=== PATIENT | female | born 1965 | race Caucasian/White ===

== ENCOUNTER 2024-11-26 20:33 | Emergency (ER) | payer OTHER ==
--- OUTSIDE RECORDS SUMMARY | 2024-11-26 20:41 | XMS REPORT | Continuity of Care Document ---
Author Name Unknown Address [address] [facility] [place] [address] [facility] Address [address] [facility] [place] [address] Care Team Providers Care Company Accountant Name Role Phone Pawan Vaughan Primary Care Physician [phone] CORINNE TELLO Attending Clinician Donna vailable CORINNE TELLO Attending Clinician Donna vailable Corinne Tello DDS Attending Clinician NAIDA DURAN Attending Clinician Unavailable Eloina Carballo MA Attending Clinician UnavailOra Del Rio DPM Attending Clinician [phone] ORA APARICIO Attending Clinician Reanna lindsay GC_GCBZW_Ronda_Rudi Attending Clinician Harjinder Huffman Attending Clinician Unavailable Pawan Vaughan Attending Clinician [phone] Doctor Unassigned, [place] Attending Clinician Tyree Lay Attending Clinician [phone] Reed Barraza MD Attending Clinician REED BARRAZA Attending Clinician UnavailSpring Balderas MD Attending Clinician SPRING FRANZ Attending Clinician Unavailable TYREE STEPHENS Attending Clinician Unavailable GC_GCBZW_Kadiyala_S Admitting Clinician UnavailHarjinder Johnson Admitting Clinician Unavailable Payers Payer Name Policy Type Policy Number Effective Date Expirati on Date Source [employer] COMM [id number] 2023 00:00:00 [employer] (EPO) [id number] 2016 00:00:00 Problems Condition Name Condition Details Condition Category Status Onset Date Resolution Date Last Treatment Date Treating Clinician Comments Source Chronic idiopathic constipati on Chronic Idiopathic Constipati on Problem Active 2023-02 2- 00:00: 00 [facility] Incomplete emptying of urinary bladder Incomplete Emptying of Urinary Bladder Problem Active 2023-02 2-20 00:00: 00 [facility] Diverticul osis of colon Diverticul osis of Colon Problem Active 4-02 00:00: 00 [facility] Pain in pelvis Pain in Pelvis Problem Active 1-31 00:00: 00 [facility] Essential hypertensi on Essential Hypertensi on Problem Active 2022-02 2-13 00:00: 00 [facility] Peripheral vascular disease Peripheral Vascular Disease Problem Active 2022-02 2-13 00:00: 00 [facility] Tobacco dependence syndrome Tobacco Dependence Syndrome Problem Active 8-08 00:00: 00 [facility] Uterovagin al prolapse Uterovagin al Prolapse Problem Active 8-08 00:00: 00 [facility] Atrophic vaginitis Atrophic Vaginitis Problem Active 8-08 00:00: 00 [facility] Overactive urinary bladder Overactive Urinary Bladder Problem Active 8-08 00:00: 00 [facility] Peripheral arterial disease Peripheral Arterial Disease Problem Active 8-08 00:00: 00 [facility] Sensation as if urinary bladder still full Sensation as If Urinary Bladder Still Full Problem Active 2-03 00:00: 00 [facility] Incomplete uterovagin al prolapse Incomplete Uterovagin al Prolapse Problem Active 10-18 00:00: 00 [facility] Medical Microscopi c hematuria Microscopi c Hematuria Problem Active 03-09 00:00: 00 [facility] Medical Tobacco dependence caused by cigarettes Tobacco Dependence Caused by Cigarettes Problem Active 2014-02 00:00: 00 [facility] Medical Lateral cystocele Lateral Cystocele Problem Active 2014-02 00:00: 00 [facility] Medical Gynecologi michael examinatio n abnormal Gynecologi michael Examinatio n Abnormal Problem Active 2014-02 00:00: 00 [facility] Medical No known active problems No known active problems Disease [facility] [id number] Vaginal prolapse Problem Active [facility] Allergies, Adverse Reactions, Alerts Allergy Name Allergy Type Status Severity Reaction(s) Onset Date Inactive Date Treating Clinician Comments Source No Known Allergie s DA Active U 2022-02 00:00: 00 [facility] NO KNOWN ALLERGIE S SYSTEMIC Active [facility] NO KNOWN ALLERGIE S SYSTEMIC Active [facility] NO KNOWN ALLERGIE S SYSTEMIC Active M[facility]OUT NO KNOWN ALLERGIE S SYSTEMIC Active [facility] ALLERGIE S NOT ON FILE SYSTEMIC Active [facility] NO KNOWN ALLERGIE S SYSTEMIC Active [facility] NO KNOWN ALLERGIE S SYSTEMIC Active [facility] NO KNOWN ALLERGIE S SYSTEMIC Active [facility] NO KNOWN ALLERGIE S SYSTEMIC Active [facility] NO KNOWN ALLERGIE S Drug Class Active [facility] Social History Social Habit Start Date Stop Date Quantity Comments Source History of tobacco use Cigarette Smoker [facility] ASSERTION Possible [facility] Sex Assigned At [facility] Gender identity [place] steffany [facility] Tobacco Comment 2024-11-02 00:00:00 2024-11-02 00:00:00 Quit smoking 2 years ago [facility] Tobacco use and exposure 2024-11-02 00:00:00 2024-11-02 00:00:00 User of smokeless tobacco [facility] History of Social function 2020-09-12 00:00:00 2020-09-12 00:00:00 [facility] Smoking Status Start Date Stop Date Source Tobacco smoking consumption unknown [facility] c Ex-smoker 2024-11-02 00:00:00 2024-11-02 00:00:00 [facility] Current Smoker 2021-09-25 00:00:00 [facility] Medications Ordered Medication Name Filled Medication Name Start Date Stop Date Current Medication? Ordering Clinician Indication Dosage Frequency Signature (SIG) Comments Components Source lisinopriL 10 mg tablet 11-02 14:29: 10 Yes 1 tablet Orally Once a day [facility] ePHEDrine HCL 12.5 mg Tab 11-02 14:29: 10 Yes as directed Orally [facility] LIPITOR 10 mg tablet 11-02 14:29: 10 Yes 1 tablet Orally Once a day [facility] lidocaine 2% viscous 2 % solution 11-02 00:00: 00 Yes [id number] 15mL Take 15 mL by mouth as needed for Oral mucosal pain. [facility] chlorhexidi ne 0.12 % mouthwash 11-02 00:00: 00 11-19 04:59 :00 Yes [id number] 15mL Swish and spit out 15 mL in the morning and 15 mL in the evening. Do all this for 16 days. [facility] alendronate 70 mg tablet 10-29 00:00: 00 Yes [facility] foLIC acid 1 mg tablet 16 00:00: 00 Yes [facility] TAKE ONE TABLET BY MOUTH ONCE NIGHTLY 2022-02 00:00: 00 Yes 40 Tomás Ferrari TAKE 1 TABLET BY MOUTH DAILY 09-04 00:00: 00 01-14 00:00 :00 No 40 Tomásedwige Ferrari TAKE 1 TABLET BY MOUTH DAILY 6 00:00: 00 01-14 00:00 :00 No 40 Tomás Ferrari TAKE 1 TABLET BY MOUTH NIGHTLY -20 00:00: 00 01-14 00:00 :00 No 40 Tomás Ferrari TAKE 7.5 ML PO EVERY 6 TO 8 HOURS NEEDED FOR COUGH -19 00:00: 00 01-14 00:00 :00 No [id number] Tomás Ferrari TAKE 1 TABLET TWICE DAILY WITH FOOD. -19 00:00: 00 01-14 00:00 :00 No [id number] Tomás Ferrari TAKE ONE TABLET BY MOUTH DAILY 3-10 00:00: 00 01-14 00:00 :00 No 40 Tomás Ferrari TAKE ONE TABLET BY MOUTH DAILY 2- 00:00: 00 01-14 00:00 :00 No 40 Tomás Ferrari Dose Unknown 2021-02 00:00: 00 01-14 00:00 :00 No Tomás Ferrari TAKE 1 TABLET AT BEDTIME. 2021-02- 00:00: 00 01-14 00:00 :00 No Tomás Ferrari Dose Unknown 2021-02 00:00: 00 01-14 00:00 :00 No Tomás Ferrari Dose Unknown - 00:00: 00 Yes Tomás Ferrari atorvastati n 20 mg tablet - 00:00: 00 Yes 1mg Tomás Ferrari Dose Unknown - 00:00: 00 Yes Tomás Ferrari Dose Unknown - 00:00: 00 Yes Tomás Ferrari Dose Unknown - 00:00: 00 Yes Tomás Ferrari Dose Unknown - 00:00: 00 Yes Tomás Ferrari Dose Unknown 2020-02 2- 00:00: 00 Yes Tomás Ferrari atorvastati n 20 mg tablet 2020-02 2- 00:00: 00 Yes 1mg Tomás Ferrari meloxicam 7.5 mg tablet 8- 00:00: 00 Yes [id number] 7.5mg Take 1 tablet by mouth daily. [facility] methylPREDN ISolone (MEDROL, FELY,) 4 mg tablets - 00:00: 00 Yes [id number] 84mg Take 21 tablets by mouth SEE-INSTRU CTIONS. follow package directions [facility] Dose Unknown - 00:00: 00 Yes Tomás Ferrari cyclobenzap rine 5 mg tablet 7-14 00:00: 00 Yes 12mg Tomás Ferrari atorvastati n 20 mg tablet -02 00:00: 00 Yes 1mg Tomás Ferrari lisinopril 20 mg tablet 6-30 00:00: 00 Yes 1mg Tomás Ferrari lisinopril 20 mg tablet 15 00:00: 00 Yes 1mg Tomás Ferrari triamcinolo ne acetonide 0.1 % topical ointment 06-16 00:00: 00 Yes 1% Tomás Ferrari lisinopril 20 mg tablet 06-16 00:00: 00 Yes 1mg Tomás Ferrari sulfamethox azole 800 mg-trimetho prim 160 mg tablet 05-18 00:00: 00 Yes 1mg Tomás Ferrari Primatene 12.5 MG Primatene 12.5 MG No Primatene 12.5 MG atorvastati n atorvastati n No atorvastat in [facility] Medical Baby Aspirin 81 mg chewable tablet Chew 1 tablet every day by oral route. Baby Aspirin 81 mg chewable tablet Chew 1 tablet every day by oral route. No 1 Q1D Baby Aspirin 81 mg chewable tablet Chew 1 tablet every day by oral route. [facility] Medical clopidogrel clopidogrel No cl opidogre l [facility] estradiol 0.01% (0.1 mg/gram) vaginal cream Insert 0.5 g every day by vaginal route for 90 days. estradiol 0.01% (0.1 mg/gram) vaginal cream Insert 0.5 g every day by vaginal route for 90 days. No .5g Q1D estradiol 0.01% (0.1 mg/gram) vaginal cream Insert 0.5 g every day by vaginal route for 90 days. [facility] FeroSul FeroSul No FeroSul [facility] gabapentin gabapentin No gabapentin [facility] lisinopril lisinopril No lisinopril [facility] Vital Signs Vital Name Observation Time Observation Value Comments S ource Diastolic blood pressure 2024-11-02 19:22:00 39 mm[Hg] [facility] Heart rate 2024-11-02 19:22:00 71 /min [facility] Body height 2024-11-02 19:22:00 149.9 cm [facility] Body weight 2024-11-02 19:22:00 45.995 kg [facility] BMI 2024-11-02 19:22:00 20.48 kg/m2 [facility] Oxygen saturation in Arterial blood by Pulse oximetry 2024-11-02 19:22:00 100 /min [facility] Systolic blood pressure 2024-11-02 19:22:00 105 mm[Hg] [facility] BMI (Body Mass Index) 2024-02-05 00:00:00 19.6 kg/m2 [facility] BP Systolic 2024-02-05 00:00:00 124 mm[Hg] [facility] BP Diastolic 2024-02-05 00:00:00 52 mm[Hg] [facility] Height 2024-02-05 00:00:00 59 [in_i] [facility] Body Weight 2024-02-05 00:00:00 97 [lb_av] [facility] BP Systolic 2023-05-19 00:00:00 117 mm[Hg] [facility] Body Weight 2023-05-19 00:00:00 100 [lb_av] [facility] BMI (Body Mass Index) 2023-05-19 00:00:00 20.2 kg/m2 [facility] Height 2023-05-19 00:00:00 59 [in_i] [facility] BP Diastolic 2023-05-19 00:00:00 60 mm[Hg] [facility] height 2021-09-25 14:30:00 59 [in_i] [facility] weight 2021-09-25 14:30:00 89 [lb_av] [facility] temperature 2021-09-25 14:30:00 97.6 [degF] Com mon [facility] bmi 2021-09-25 14:30:00 17.97 kg/m2 [facility] oximetry 2021-09-25 14:30:00 98 % Commo n [facility] respiratory rate 2021-09-25 14:30:00 16 /min [facility] blood pressure systolic 2021-09-25 14:30:00 146 mm[Hg] [facility] blood pressure diastolic 2021-09-25 14:30:00 68 mm[Hg] [facility] Systolic blood pressure 2020-11-08 16:13:00 145 mm[Hg] [facility] Diastolic blood pressure 2020-11-08 16:13:00 72 mm[Hg] [facility] Heart rate 2020-11-08 16:13:00 75 /min [facility] Body weight 2020-11-08 16:13:00 37.603 kg [facility] BMI 2020-11-08 16:13:00 17.94 kg/m2 [facility] Oxygen saturation in Arterial blood by Pulse oximetry 2020-11-08 16:13:00 98 /min [facility] BP Systolic 2024-04-21 08:43:00 118 mm[Hg] Step hen [facility] BP Diastolic 2024-04-21 08:43:00 65 mm[Hg] Darrius phen F [facility] Weight Measured 2024-04-21 08:43:00 93.00 pounds Tomás F [facility] Height Measured 2024-04-21 08:43:00 59.00 inches Tomás F [facility] Body Temperature 2024-04-21 08:43:00 97.90 degrees Tomás F [facility] Heart Rate 2024-04-21 08:43:00 85.00 /min Lacey en F [facility] Respiratory Rate 2024-04-21 08:43:00 18.00 /min Tomás F Vega BP Systolic 2022-09-04 13:34:00 136 mm[Hg] Step hen [facility] BP Diastolic 2022-09-04 13:34:00 71 mm[Hg] Darrius phen [facility] Weight Measured 2022-09-04 13:34:00 90.80 pounds Tomás F Vega Height Measured 2022-09-04 13:34:00 59.00 inches Tomás F Vega Body Temperature 2022-09-04 13:34:00 98.50 degrees Tomás F Vega Heart Rate 2022-09-04 13:34:00 73.00 /min Lacey en F [facility] Respiratory Rate 2022-09-04 13:34:00 17.00 /min Tomás F Vega BP Systolic 2022-06-05 08:46:00 144 mm[Hg] Step hen F [facility] BP Diastolic 2022-06-05 08:46:00 74 mm[Hg] Darrius phen F [facility] Weight Measured 2022-06-05 08:46:00 88.80 pounds Tomás F Vega Height Measured 2022-06-05 08:46:00 59.00 inches Tomás F Vega Body Temperature 2022-06-05 08:46:00 98.20 degrees Tomás F Vega Heart Rate 2022-06-05 08:46:00 85.00 /min Lacey en F Evga Respiratory Rate 2022-06-05 08:46:00 18.00 /min Tomás F Vega BP Systolic 2022-04-09 15:05:00 121 mm[Hg] Step hen F [facility]ega BP Diastolic 2022-04-09 15:05:00 67 mm[Hg] Darrius phen F [facility] Weight Measured 2022-04-09 15:05:00 87.60 pounds Tomás F Vega Height Measured 2022-04-09 15:05:00 59.00 inches Tomás F Vega Body Temperature 2022-04-09 15:05:00 98.30 degrees Tomás F Vega Heart Rate 2022-04-09 15:05:00 77.00 /min Lacey en F [facility]ega Respiratory Rate 2022-04-09 15:05:00 17.00 /min Tomás F Vega BP Systolic 2022-02-26 10:00:00 123 mm[Hg] Step hen F [facility]ega BP Diastolic 2022-02-26 10:00:00 69 mm[Hg] Darrius phen F [facility] Weight Measured 2022-02-26 10:00:00 87.40 pounds Tomás F Vega Height Measured 2022-02-26 10:00:00 59.00 inches Tomás F Vega Body Temperature 2022-02-26 10:00:00 97.60 degrees Tomás F Vega Heart Rate 2022-02-26 10:00:00 78.00 /min Lacey en F [facility]ega Respiratory Rate 2022-02-26 10:00:00 18.00 /min Tomás F Vega BP Systolic 2022-01-28 10:47:00 135 mm[Hg] Step hen F [facility]ega BP Diastolic 2022-01-28 10:47:00 70 mm[Hg] Darrius phen F [facility]ega Weight Measured 2022-01-28 10:47:00 87.20 pounds Tomás F Vega Height Measured 2022-01-28 10:47:00 59.00 inches Tomás F Vega Body Temperature 2022-01-28 10:47:00 97.70 degrees Tomás F Vega Heart Rate 2022-01-28 10:47:00 80.00 /min Lacey en F Vega Respiratory Rate 2022-01-28 10:47:00 18.00 /min Tomás F Vega BP Systolic 2021-12-31 11:09:00 125 mm[Hg] Step hen F [facility]ega BP Diastolic 2021-12-31 11:09:00 74 mm[Hg] Darrius phen F [facility]ega Weight Measured 2021-12-31 11:09:00 86.60 pounds Tomás F Vega Height Measured 2021-12-31 11:09:00 59.00 inches Tomás F Vega Body Temperature 2021-12-31 11:09:00 98.30 degrees Tomás F Vega Heart Rate 2021-12-31 11:09:00 81.00 /min Lacey en F Vega Respiratory Rate 2021-12-31 11:09:00 18.00 /min Tomás F Vega BP Systolic 2021-11-28 10:31:00 144 mm[Hg] Step hen F [facility]ega BP Diastolic 2021-11-28 10:31:00 73 mm[Hg] Darrius phen F [facility]ega Weight Measured 2021-11-28 10:31:00 89.00 pounds Tomás F Vega Height Measured 2021-11-28 10:31:00 59.00 inches Tomás F Vega Body Temperature 2021-11-28 10:31:00 98.20 degrees Tomás F Vega Heart Rate 2021-11-28 10:31:00 96.00 /min Lacey en F Vega Respiratory Rate 2021-11-28 10:31:00 18.00 /min Tomás F Vega BP Systolic 2021-11-14 15:15:00 184 mm[Hg] Step hen F Vega BP Diastolic 2021-11-14 15:15:00 76 mm[Hg] Darrius phen F [facility]ega Weight Measured 2021-11-14 15:15:00 90.40 pounds Tomás Ferrari Height Measured 2021-11-14 15:15:00 59.00 inches Tomás F Vega Body Temperature 2021-11-14 15:15:00 98.00 degrees Tomás F Vega Heart Rate 2021-11-14 15:15:00 82.00 /min Alcey en F Vega Respiratory Rate 2021-11-14 15:15:00 18.00 /min Tomás F Vega BP Systolic 2021-03-06 09:29:00 165 mm[Hg] Step hen F Vega BP Diastolic 2021-03-06 09:29:00 82 mm[Hg] Darrius phen F Vega Weight Measured 2021-03-06 09:29:00 82.20 pounds Tomás F Vega Height Measured 2021-03-06 09:29:00 59.45 inches Tomás F Vega Body Temperature 2021-03-06 09:29:00 98.10 degrees Tomás F Vega Heart Rate 2021-03-06 09:29:00 96.00 /min Lacey en F Vega Respiratory Rate 2021-03-06 09:29:00 16.00 /min Tomás F [facility] Procedures Procedure Date / Time Performed Performing Clinician Source SCREENING DIGITAL BREAST TOMOSYNTHESIS BI 2024-02-05 00:00:00 [facility] Medical Repair of Vagina 2023-02-02 00:00:00 [facility] [id number] 2023-02-02 00:00:00 [facility] [id number] 2023-02-02 00:00:00 [facility] [id number] 2023-02-02 00:00:00 [facility] [id number] 2023-02-02 00:00:00 [facility] [id number] 2023-02-02 00:00:00 [facility] Vascular Surgery 2023-01-26 00:00:00 [facility] Angiography of Peripheral Artery Graft 2022-07-17 00:00:00 [facility] REFERRAL- REQUEST/RESPONSE 2022-04-29 05:01:00 Doctor Unassigned, [place] [facility] REFERRAL- REQUEST/RESPONSE 2021-05-01 05:01:00 Doctor Unassigned, [place] [facility] REFERRAL- REQUEST/RESPONSE 2021-01-08 06:01:00 Doctor Unassigned, [place] [facility] REFERRAL- REQUEST/RESPONSE 2020-12-12 05:01:00 Doctor Unassigned, [place] [facility] AUTHORIZATION FOR RELEASE OF PHI 2020-11-08 05:01:00 Doctor Unassigned, [place] [facility] Tubal Ligation [facility] Encounters Start Date/Time End Date/Time Encounter Type Admission Type Attending [facility] Care Facility Care Department Encounter ID Source 2021-09-25 14:28:04 Outpatient [facility] [id number] [facility] 2024-11-02 14:00:00 2024-11-02 15:25:36 Office Visit Corinne Thomas [facility] [id number] [id number] [id number] [id number] [facility] 2024-09-21 00:00:00 2024-09-21 00:00:00 [facility] [id number] [facility] 2024-04-21 08:35:33 2024-04-21 08:35:33 Outpatient SFA SFA [id number] Tomás Ferrari 2024-04-21 00:00:00 2024-04-21 00:00:00 Outpatient Visit SFA [id number] Tomás Ferrari 2024-02-05 00:00:00 2024-02-05 00:00:00 Latanya Bond MD: [address] [place], [facility] [address], [place] [address] , Ph. [facility] - GC_GCBZW_Jihan [facility]* [id number] [facility] 2023-10-14 00:00:00 2023-11-14 23:52:24 Telephone Haris, Eloina Carballo, Eloina [facility] [address] [id number] [id number] [id number] Jerica samayoa [facility] 2023-11-05 10:20:00 2023-11-05 10:57:08 Office Visit Ora Aparicio [facility] [id number] 350.1.13.70 8.2.7.2.686 [id number] Jerica samayoa [facility] 2023-11-05 10:05:35 2023-11-05 10:57:08 [facility] [id number] 2023-10-08 10:20:00 2023-10-08 10:58:29 Office Visit Markus Ora ThomasErick [facility] [id number] 350.1.13.70 8.2.7.2.686 [id number] [facility] 2023-10-08 10:16:46 2023-10-08 10:58:29 [facility] [id number] 2023-10-01 10:40:00 2023-10-01 11:34:53 Office Visit Markus Ora ThomasErick [facility] [id number] 350.1.13.70 8.2.7.2.686 [id number] [facility] 2023-10-01 10:31:38 2023-10-01 11:34:53 Outpatient Elective [facility] [id number] [facility] 2023-09-17 12:20:00 2023-09-17 12:43:54 Office Visit Ora Aparicio [facility] [id number] 350.1.13.70 8.2.7.2.686 [id number] [facility] 2023-09-17 12:14:21 2023-09-17 12:43:54 Outpatient Elective ORA APARICIO EOUT EOUT [id number] EOUT 2023-09-10 10:40:00 2023-09-10 11:25:20 Consult Ora Aparicio [facility] [id number] 350.1.13.70 8.2.7.2.686 [id number] [facility] 2023-09-10 10:34:02 2023-09-10 11:25:20 Outpatient Elective ORA APARICIO EOUT EOUT [id number] EOUT 2023-09-08 00:00:00 2023-09-08 00:00:00 (TEL) STLMLC STLMLC [id number] [facility] 2023-05-19 00:00:00 2023-05-19 00:00:00 Latanya Bond MD: [address] [place] [address] S, [address], [place] [address] , Ph. [facility] - GC_GCBZW_[facility]* [id number] [facility] 2023-02-02 10:24:00 2023-02-03 17:18:00 Inpatient Harjinder Angel [facility] [id number] [facility] 2022-09-04 13:29:20 2022-09-04 13:29:20 Outpatient SFA SFA [id number] Tomás Ferrari 2022-06-05 08:39:47 2022-06-05 08:39:47 Outpatient SFA SFA [id number] Tomás Ferrari 2022-05-08 00:00:00 2022-05-08 00:00:00 Letter (Out) Pawan Vaughan [facility] [id number] 350.1.13.10 4.2.7.2.686 [id number] [facility] 2022-05-04 00:00:00 2022-05-04 00:00:00 Patient Secure Msg Doctor Unassigned, [place] [facility] [id number] 350.1.13.10 4.2.7.2.686 [id number] [facility] 2022-04-29 00:00:00 2022-04-29 00:00:00 Orders Only Doctor Unassigned, [place] [facility] [id number] 350.1.13.10 4.2.7.2.686 [id number] [facility] 2022-04-09 14:55:26 2022-04-09 14:55:26 Outpatient SFA SFA [id number] Tomás Ferrari 2022-02-26 09:53:30 2022-02-26 09:53:30 Outpatient SFA SFA [id number] Tomás Ferrari 2022-01-28 10:36:24 2022-01-28 10:36:24 Outpatient SFA SFA [id number] Tomás Ferrari 2021-12-31 11:46:14 2021-12-31 11:46:14 Outpatient SFA SFA [id number] Tomás Ferrari 2021-11-28 10:24:21 2021-11-28 10:24:21 Outpatient SFA SFA [id number] Tomás Ferrari 2021-09-25 00:00:00 2021-09-25 00:00:00 OFFICE VISIT NEW PT LEVEL 2 STLMLC STLMLC [id number] [facility] 2021-05-01 00:00:00 2021-05-01 00:00:00 Orders Only Doctor Unassigned, [place] [facility] 1.2840.114 350.1.13.10 4.2.7.2.686 [id number] [facility] 2021-01-08 00:00:00 2021-01-08 00:00:00 Orders Only Doctor Unassigned, [place] [facility] [id number] 350.1.13.10 4.2.7.2.686 [id number] [facility] 2020-12-12 00:00:00 2020-12-12 00:00:00 Orders Only Doctor Unassigned, [place] [facility] [id number] 350.1.13.10 4.2.7.2.686 [id number] [facility] 2020-11-14 00:00:00 2020-11-14 00:00:00 Telephone Tyree Stephens [facility] 1.284.114 350.1.13.10 4.2.7.2.686 [id number] [facility] 2020-11-08 10:54:06 2020-11-08 11:09:06 Office Visit Tyree Stephens Craig L [facility] 1.2840.114 350.1.13.10 4.2.7.2.686 [id number] [facility] 2020-11-08 10:45:00 2020-11-08 10:45:00 Outpatient R REED BARRAZA [facility] [id number] [facility] 2020-11-08 00:00:00 2020-11-08 00:00:00 Letter (Out) Doctor Unassigned, [place] [facility] 1.2840.114 350.1.13.10 4.2.7.2.686 [id number] [facility] 2020-11-08 00:00:00 2020-11-08 00:00:00 Letter (Out) Doctor Unassigned, [facility] [id number] 350.1.13.10 4.2.7.2.686 [id number] [facility] 2020-11-08 00:00:00 2020-11-08 00:00:00 Orders Only Doctor Unassigned, [facility] 1.2.840.114 350.1.13.10 4.2.7.2.686 [id number] [facility] 2020-10-18 12:53:40 2020-10-18 23:59:00 Hospital Encounter [facility] [address] [facility] Office Building 1.2840.114 350.1.13.10 4.2.7.2.686 [id number] [facility] 2020-10-18 13:00:00 2020-10-18 13:00:00 Outpatient R [facility] [id number] [facility] 2020-10-02 00:00:00 2020-10-02 00:00:[address] [facility] [id number] 350.1.13.10 4.2.7.2.686 [id number] [facility] 2020-09-12 14:12:58 2020-09-12 14:52:36 Office Visit Reed Barraza Brett [facility] [id number] 350.1.13.10 4.2.7.2.686 [id number] [facility] 2020-09-12 14:30:00 2020-09-12 14:30:00 Outpatient TYREE GOODMAN [facility] [id number] [facility] Results Test Description Test Time Test Comments Results Result Co mments Source [facility] METABOLIC [id number] 04:40:00* Test Item Value Reference Range Interpretation Comme nts SODIUM (test code = NA) 136 mmol/L 134-147 N POTASSIUM (test code = K) 4.6 mmol/L 3.4-5.0 N CHLORIDE (test code = CL) 103 mmol/L 100-108 N CARBON DIOXIDE (test code = CO2) 26 mmol/L 21-32 N ANION GAP (test code = GAP) 7.0 GAP calc 4.0-15.0 N GLUCOSE (test code = GLU) 130 MG/DL 70-110 H BLOOD UREA NITROGEN (test code = BUN) 16 MG/DL 7-18 N GLOMERULAR FILTRATION RATE (test code = GFR) >=60 max estimate estGFR >60 The Glomerular Filtration Rate is a calculated parameterbased on serum Creatinine, patient age and sex. GFR valuesless than 60 mL/min/1.73 square meters are indicative ofChronic Kidney Disease. Values less than 15 mL/min/1.73square meters indicate Kidney failure. The calculation forGFR is based on the CKD-EPI (2020) calculation. This formulais race indifferent and is the recommended formula for GFRby the National Kidney Foundation for Adults.The GFR will not calculate if the sex is unknown or if thepatient's age is <18 years. CREATININE (test code = CREAT) 1.0 MG/DL 0.6-1.0 N CALCIUM (test code = CA) 9.0 MG/DL 8.5-10.1 N CBC W/AUTO [id number] 04:14:00* Test Item Value Reference Range Interpretation Comme nts WHITE BLOOD CELL (test code = WBC) 11.9 K/mm3 3.5-11.0 H RED BLOOD CELL (test code = RBC) 3.05 M/mm3 4.70-6.10 L HEMOGLOBIN (test code = HGB) 9.1 G/DL 10.4-14.9 L HEMATOCRIT (test code = HCT) 28.0 % 31.5-44.1 L MEAN CELL VOLUME (test code = MCV) 91.8 Fl 84.5-98.6 N MEAN CELL HGB (test code = MCH) 29.8 pg 27.0-34.2 N MEAN CELL HGB CONCETRATION (test code = MCHC) 32.5 G/DL 31.5-34.0 N RED CELL DISTRIBUTION WIDTH (test code = RDW) 14.0 SD 11.5-14.5 N PLATELET COUNT (test code = PLT) 200 K/mm3 150-450 N MEAN PLATELET VOLUME (test c ode = MPV) 8.50 fL 7.0-10.5 N NEUTROPHIL % (test code = NT%) 84.3 % 40-76 H IMMATURE GRANULOCYTE % (test code = IG%) 0.3 % 0.0-5.0 N LYMPHOCYTE % (test code = LY%) 9.9 % 20.5-51.1 L MONOCYTE % (test code = MO%) 5.5 % 1.7-9.3 N EOSINOPHIL % (test code = EO%) 0.0 % 0.0-6.0 N BASOPHIL % (test code = BA%) 0.0 % 0.0-2.0 N NUCLEATED RBC % (test code = NRBC%) 0.0 /100WBC% 0.0-1.0 N NEUTROPHIL # (test code = NT#) 10.1 K/mm3 1.8-7.6 H IMMATURE GRANULOCYTE # (test code = IG#) 0.03 x10 3/uL 0.00-0.03 N LYMPHOCYTE # (test code = LY#) 1.2 K/mm3 0.6-3.2 N MONOCYTE # (test code = MO#) 0.7 K/mm3 0.3-1.1 N EOSINOPHIL # (test code = EO#) 0.0 K/mm3 0.0-0.4 N BASOPHIL # (test code = BA#) 0.0 K/mm3 0.0-0.1 N NUCLEATED RBC # (test code = NRBC#) 0.0 K/mm3 0.0-0.1 N - XR CHEST 1 [id number] 10:53:00 [facility] : 1965 Sex: F Name: DULCE MEZAland : 1965 Age/S: 57 / F [id number] Unit #: [id number] Loc: [place] [address] Phys: Latanya Bond MD Acct: [id number] Dis Date: Status: PRE SDC PHONE #: [phone] Exam Date: 01/29/2023 1041 FAX #: Reason: PRESURGERY EXAMS: CPT: [id number] XR CHEST 1 V 45503 Fluoro Time: DAP (Gy m2): Air Kerma (mGy): EXAMINATION: - XR CHEST 1 V HISTORY: Preop COMPARISON: None. LOCATION CODE: C3 FINDINGS: Single frontal view of the chest is submitted for evaluation. The lungs are clear. The cardiac silhouette, mediastinum and pulmonary vasculature are unremarkable. The regional osseous structures are intact IMPRESSION: No acute radiographic abnormality at 1053 Reported and signed by: Dianne Ruiz M.D. CC: Latanya Bond MD PAGE 1 Signed Report Name: DULCE MEZA [place] : 1965 Age/S: 57 / F [id number] [facility] Unit #: [id number] Loc: [place] [address] Phys: Latanya Bond MD Acct: [id number] Dis Date: Status: PRE SDC PHONE #: [phone] Exam Date: 01/29/2023 1041 FAX #: Reason: PRESURGERY EXAMS: CPT: [id number] XR CHEST 1 V 11335 Fluoro Time: DAP (Gym2): Air Kerma (mGy): (Continued) Technologist: CELY ELLIS Trnscb Date/Time: 01/29/2023 (1053) [id number] Orig Print D/T: S: 01/29/2023 (1057) PAGE 2 Signed ReportBASIC METABOLIC [id number] 10:43:00 * Test Item Value Reference Range Interpretation Comme nts SODIUM (test code = NA) 142 mmol/L 134-147 N POTASSIUM (test code = K) 4.0 mmol/L 3.4-5.0 N CHLORIDE (test code = CL) 109 mmol/L 100-108 H CARBON DIOXIDE (test code = CO2) 28 mmol/L 21-32 N ANION GAP (test code = GAP) 5.0 GAP calc 4.0-15.0 N GLUCOSE (test code = GLU) 109 MG/DL 70-110 N BLOOD UREA NITROGEN (test code = BUN) 8 MG/DL 7-18 N GLOMERULAR FILTRATION RATE (test code = GFR) 52 estGFR >60 L The Glomerular Filtration Rate is a calculated parameterbased on serum Creatinine, patient age and sex. GFR valuesless than 60 mL/min/1.73 square meters are indicative ofChronic Kidney Disease. Values less than 15 mL/min/1.73square meters indicate Kidney failure. The calculation forGFR is based on the CKD-EPI (2020) calculation. This formulais race indifferent and is the recommended formula for GFRby the National Kidney Foundation for Adults.The GFR will not calculate if the sex is unknown or if thepatient's age is <18 years. CREATININE (test code = CREAT) 1.2 MG/DL 0.6-1.0 H CALCIUM (test code = CA) 9.8 MG/DL 8.5-10.1 N PROTHROMBIN [id number] 10:38:00* Test Item Value Reference Range Interpretation Comme nts PT PATIENT (test code = PTP) 11.1 SECONDS 9.3-12.9 N INTERNATIONAL NORMAL RATIO (test code = INR) 1.00 INR Unit 0.8-1.2 N TARGET INR BY INDICATION Indication INR1. Prophylaxis of venous thrombosis 2.0 - 3.0 (orthopedic surgery), Prophylaxis of venous thrombosis (other than high-risk surgery), Treatment of Deep Vein Thrombosis/Pulmonary Embolism, Prevention of systemic embolism - Tissue heart valves, Acute Myocardial Infarction (to prevent systemic embolism), Valvular heart disease, Acute Myocardial Infarction (to prevent systemic embolism), Valvular heart disease, Atrial Fibrillation, Bileaflet mechanical valve in aortic position.2. Mechanical prosthetic valves (high risk), 2.5 - 3.5 Presence of Lupus Anticoagulant or Antiphospholipid Antibodies, Prevention of systemic embolism - Acute Myocardial Infarction (to prevent recurrent infarct). Comment: PRESURGERYTHROMBOPLASTIN TIME [id number] 10:38:00* Test Item Value Reference Range Interpretation Comme nts THROMBOPLASTIN TIME PARTIAL (test code = PTT) 32.7 SECONDS 26-35 N Comment: PRESURGERYCBC W/AUTO [id number] 10:28:00* Test Item Value Reference Range Interpretation Comme nts WHITE BLOOD CELL (test code = WBC) 7.0 K/mm3 3.5-11.0 N RED BLOOD CELL (test code = RBC) 3.50 M/mm3 4.70-6.10 L HEMOGLOBIN (test code = HGB) 10.3 G/DL 10.4-14.9 L HEMATOCRIT (test code = HCT) 32.8 % 31.5-44.1 N MEAN CELL VOLUME (test code = MCV) 93.7 Fl 84.5-98.6 N MEAN CELL HGB (test code = MCH) 29.4 pg 27.0-34.2 N MEAN CELL HGB CONCETRATION (test code = MCHC) 31.4 G/DL 31.5-34.0 L RED CELL DISTRIBUTION WIDTH (test code = RDW) 14.0 SD 11.5-14.5 N PLATELET COUNT (test code = PLT) 169 K/mm3 150-450 N MEAN PLATELET VOLUME (test c ode = MPV) 8.60 fL 7.0-10.5 N NEUTROPHIL % (test code = NT%) 53.4 % 40-76 N IMMATURE GRANULOCYTE % (test code = IG%) 0.1 % 0.0-5.0 N LYMPHOCYTE % (test code = LY%) 35.7 % 20.5-51.1 N MONOCYTE % (test code = MO%) 6.2 % 1.7-9.3 N EOSINOPHIL % (test code = EO%) 4.2 % 0.0-6.0 N BASOPHIL % (test code = BA%) 0.4 % 0.0-2.0 N NUCLEATED RBC % (test code = NRBC%) 0.0 /100WBC% 0.0-1.0 N NEUTROPHIL # (test code = NT#) 3.7 K/mm3 1.8-7.6 N IMMATURE GRANULOCYTE # (test code = IG#) 0.01 x10 3/uL 0.00-0.03 N LYMPHOCYTE # (test code = LY#) 2.5 K/mm3 0.6-3.2 N MONOCYTE # (test code = MO#) 0.4 K/mm3 0.3-1.1 N EOSINOPHIL # (test code = EO#) 0.3 K/mm3 0.0-0.4 N BASOPHIL # (test code = BA#) 0.0 K/mm3 0.0-0.1 N NUCLEATED RBC # (test code = NRBC#) 0.0 K/mm3 0.0-0.1 N URINALYSIS [id number] 10:24:00* Test Item Value Reference Range Interpretation Comme nts UA GLUCOSE DIPSTICK (test code = DGLUU) NEGATIVE mg/dL NEG UA BILIRUBIN DIPSTICK (test code = BILU) NEGATIVE mg/dL NEG UA KETONE DIPSTICK (test code = KETU) NEGATIVE mg/dL NEG UA SPECIFIC GRAVITY (test code = SGU) 1.010 SG 1.005-1.030 UA BLOOD DIPSTICK (test code = NOAM) TRACE mg/DL NEG A UA PH DIPSTICK (test code = FERCHO) 6.0 pH UNITS 5.0-7.0 UA PROTEIN DIPSTICK (test code = PROU) NEGATIVE mg/dL NEG UA UROBILINIOGEN DIPSTICK (test code = URO) 0.2 mg/dL <2.0 UA NITRITE DIPSTICK (test code = MISHA) NEGATIVE SCREEN NEG UA LEUKOCYTE ESTERASE DIPSTICK (test code = LEUU) NEGATIVE Leuk/mcL NEGATIVE Urine Specimen Type: Clean CatchLIPID [id number] 09:46:14* Test Item Value Reference Range Interpretation Comme nts CHOLESTEROL (test code = 2210) 248 MG/DL <200 H TRIGLYCERIDES (test code = 2232) 173 MG/DL <150 H HDL CHOLESTEROL (test code = 2220) 43 MG/DL >39 CALC LDL CHOL (test code = 2237) 172 MG/DL <100 H NOTE: CALCULATED LDL IS BASED ON MATEUS-BLANKENSHIP METHOD WHICHINCLUDES ADJUSTABLE TRIGLYCERIDE:VLDL CHOLESTEROL RATIO.THIS FACTOR VARIES BY MEASURED TRIGLYCERIDE AND NON-HDLCHOLESTEROL CONCENTRATIONS WITH INCREASED CALCULATED LDL SEENIN HIGHER TRIGLYCERIDE OR LOWER NON-HDL SPECIMENS. FOR MOREINFORMATION, SEE CLIENT ANNOUNCEMENT AT [email or web address] RISK RATIO LDL/HDL (test code = 2238) 4.00 RATIO <3.22 H [facility] has i mportant pathology staff changes effective 04/16/2022. New pathology staff will provide uninterrupted, excellent patient care and clinical consultation. See URL: [email or web address]. UNLESS OTHERWISE INDICATED, ALL TESTING PERFORMED AT [facility] [address] [place] [address] JUTE BAG CLIPPER: LEON HUANG M.D. [place] NUMBER [id number] [facility] [place] [id number] LIPID [id number] 00:00:00* Test Item Value Reference Range Interpretation Comme nts CHOLESTEROL (test code = 2210) 248 MG/DL TRIGLYCERIDES (test code = 2232) 173 MG/DL HDL CHOLESTEROL (test code = 2220) 43 MG/DL CALC LDL CHOL (test code = 2237) 172 MG/DL RISK RATIO LDL/HDL (test cod e = 2238) 4.00 RATIO Tomás FerrariVITAMIN [id number] 00:00:00* Test Item Value Reference Range Interpretation Comme nts VITAMIN B-12 (test code = 2840) 1887 PG/ML Tomás FerrariCOMPREHENSIVE METABOLIC [id number] 03:11:47* Test Item Value Reference Range Interpretation Comme nts GLUCOSE (test code = 2217) 106 MG/DL 70-99 H BUN (test code = 2208) 14 MG/DL 6-20 CREATININE (test code = 2214) 0.61 MG/DL 0.60-1.30 eGFR (2020 CKD-EPI) (test code = 27873) 104 ML/MIN/1.73 >60 CALC BUN/CREAT (test code = 2235) 23 RATIO 6-28 SODIUM (test code = 2231) 142 MEQ/L 133-146 POTASSIUM (test code = 2228) 4.3 MEQ/L 3.5-5.4 CHLORIDE (test code = 2215) 103 MEQ/L 95-107 CARBON DIOXIDE (test code = 2206) 28 MEQ/L 19-31 CALCIUM (test code = 2209) 9.8 MG/DL 8.5-10.5 PROTEIN, TOTAL (test code = 2228) 7.2 G/DL 6.1-8.3 ALBUMIN (test code = 1) 4.5 G/DL 3.5-5.2 CALC GLOBULIN (test code = 2240) 2.7 G/DL 1.9-3.7 CALC A/G RATIO (test code = 2233) 1.7 RATIO 1.0-2.6 BILIRUBIN, TOTAL (test code = 2206) 0.3 MG/DL See_Comment [Automated me ssage] The system which generated this result transmitted reference range: <=1.2. The reference range was not used to interpret this result as normal/abnormal. ALKALINE PHOSPHATASE (test code = 2203) 107 U/L 40-136 AST (test code = 2217) 16 U/L 9-40 ALT (test code = 2218) 9 U/L 5-40 LIPID [id number] 03:11:47* Test Item Value Reference Range Interpretation Comme nts CHOLESTEROL (test code = 0) 291 MG/DL <200 H TRIGLYCERIDES (test code = 2) 250 MG/DL <150 H HDL CHOLESTEROL (test code = 0) 51 MG/DL >39 CALC LDL CHOL (test code = 2236) 195 MG/DL <100 H NOTE: CALCULATED LDL IS BASED ON MATEUS-BLANKENSHIP METHOD WHICHINCLUDES ADJUSTABLE TRIGLYCERIDE:VLDL CHOLESTEROL RATIO.THIS FACTOR VARIES BY MEASURED TRIGLYCERIDE AND NON-HDLCHOLESTEROL CONCENTRATIONS WITH INCREASED CALCULATED LDL SEENIN HIGHER TRIGLYCERIDE OR LOWER NON-HDL SPECIMENS. FOR MOREINFORMATION, SEE CLIENT ANNOUNCEMENT AT [email or web address] RISK RATIO LDL/HDL (test code = 2238) 3.82 RATIO <3.22 H HEMOGLOBIN [id number] 02:15:10* Test Item Value Reference Range Interpretation Comme nts HEMOGLOBIN A1c (test code = 75359) 5.5 % 4.2-5.6 UNLESS OTHERWISE INDICATED, ALL TESTING PERFORMED [facility] [address] [place] [address] J[employer] BAG CLIPPER: IVONE CRABTREE M.D. CLIA NUMBER [id number] [facility] [place]. [id number] COMPREHENSIVE METABOLIC [id number] 00:00:00* Test Item Value Reference Range Interpretation Comme nts GLUCOSE (test code = 2217) 106 MG/DL BUN (test code = 2208) 14 MG/DL CREATININE (test code = 2214) 0.61 MG/DL eGFR (2020 CKD-EPI) (test code = 17466) 104 ML/MIN/1.73 CALC BUN/CREAT (test code = 2235) 23 RATIO SODIUM (test code = 2231) 142 MEQ/L POTASSIUM (test code = 2228) 4.3 MEQ/L CHLORIDE (test code = 2215) 103 MEQ/L CARBON DIOXIDE (test code = 2206) 28 MEQ/L CALCIUM (test code = 2209) 9.8 MG/DL PROTEIN, TOTAL (test code = 2229) 7.2 G/DL ALBUMIN (test code = 2201) 4.5 G/DL CALC GLOBULIN (test code = 2240) 2.7 G/DL CALC A/G RATIO (test code = 2234) 1.7 RATIO BILIRUBIN, TOTAL (test code = 2207) 0.3 MG/DL ALKALINE PHOSPHATASE (test code = 2204) 107 U/L AST (test code = 2218) 16 U/L ALT (test code = 2219) 9 U/L Tomás FerrariLIPID [id number] 00:00:00* Test Item Value Reference Range Interpretation Comme nts CHOLESTEROL (test code = 2210) 291 MG/DL TRIGLYCERIDES (test code = 2232) 250 MG/DL HDL CHOLESTEROL (test code = 2220) 51 MG/DL CALC LDL CHOL (test code = 2237) 195 MG/DL RISK RATIO LDL/HDL (test cod e = 2238) 3.82 RATIO Tomás FerrariHEMOGLOBIN [id number] 00:00:00* Test Item Value Reference Range Interpretation Comme nts HEMOGLOBIN A1c (test code = 63268) 5.5 % Tomás FerrariSARS-CoV-2 (COVID-19), RT-PCR/[id number] 18:23:29* Test Item Value Reference Range Interpretation Comments SARS-CoV-2 INTERPRETATION (test code = 27290) NEGATIVE SEE NOTE SARS-CoV-2 R NA NOT DETECTEDNegative results do not preclude SARS-CoV-2 infection and should notbe used as the sole basis for patient management decisions. Negativeresults must be combined with clinical observations, patient history,and epidemiological information. Optimum specimen types and timingfor peak viral levels during infections caused by SARS-CoV-2 have notbeen determined. Collection of multiple specimens or types ofspecimens may be necessary to detect virus. Improper specimencollection and handling, sequence variability under primers/probes,or organism present below the limit of detection may lead to falsenegative results. Positive and negative predictive values oftesting are highly dependent on prevalence. False negative testresults are more likely when prevalence is high. SOURCE (test code = 25730) NOT SPECIFIED Note: Methodolog y is Richard Germania Real-Time RT-PCR. The expected result or reference range is NEGATIVE (Not Detected). For more information regarding COVID-19 testing to include clinicalinformation, methodology detail, intended use, FDA authorization andrecommended fact sheets for patients or healthcare providers, see Are You a Human Announcement: SARS-CoV-2 (COVID-19) by NAAT at URL below (note,fact sheets are provided by method given in report:[email or web address] Alternatively, see downloadable PDF fact sheet at:[email or web address] UNLESS OTHERWISE INDICATED, ALL TESTING PERFORMED [facility] [address] [place] [address] JUTE BAG CLIPPER: IVONE CRABTREE M.D. IA NUMBER [id number] [facility] [place]. [id number] SARS-CoV-2 (COVID-19) by RT-PCR (HIGH RISK)2021-02-23 00:00:00* Test Item Value Reference Range Interpretation Comme nts SARS-CoV-2 INTERPRETATION (t est code = 34076) NEGATIVE SOURCE (test code = 25272) NOT SPECIFIED Tomás Lorenzo AustinVAGINAL PATHOGENS DNA [id number] 00:00:00* Test Item Value Reference Range Interpretation Comme nts JONATHAN SPECIES (test code = 00087) NEGATIVE G. VAGINALIS (test code = 46132) NEGATIVE T. VAGINALIS (test code = 63198) NEGATIVE Tomás Lorenzo [id number]-[id number] (COVID-19) by RT-PCR (HIGH RISK)2020-10-27 00:00:00* Test Item Value Reference Range Interpretation Comme nts SARS-CoV-2 INTERPRETATION (test code = 55292) NEGATIVE SOURCE (test code = 40572) NASOPHARYNGEAL Tomás FerrariCOMPREHENSIVE METABOLIC [id number] 00:00:00* Test Item Value Reference Range Interpretation Comme nts GLUCOSE (test code = 2217) 100 MG/DL BUN (test code = 2208) 9 MG/DL CREATININE (test code = 2214) 0.47 MG/DL eGFR AMER. (test cod e = 04485) 128 ML/MIN/1.73 eGFR NON- AMER. (test code = 94661) 110 ML/MIN/1.73 CALC BUN/CREAT (test code = 2235) 19 RATIO SODIUM (test code = 2231) 143 MEQ/L POTASSIUM (test code = 2228) 4.5 MEQ/L CHLORIDE (test code = 2215) 103 MEQ/L CARBON DIOXIDE (test code = 2206) 29 MEQ/L CALCIUM (test code = 2209) 9.8 MG/DL PROTEIN, TOTAL (test code = 2229) 7.4 G/DL ALBUMIN (test code = 2201) 4.7 G/DL CALC GLOBULIN (test code = 2240) 2.7 G/DL CALC A/G RATIO (test code = 2234) 1.7 RATIO BILIRUBIN, TOTAL (test code = 2207) 0.3 MG/DL ALKALINE PHOSPHATASE (test code = 2204) 104 U/L AST (test code = 2218) 22 U/L ALT (test code = 2219) 11 U/L Tomás FerrariCBC W/AUTO [id number] 00:00:00* Test Item Value Reference Range Interpretation Comme nts WBC (test code = 1001) 9.3 K/UL RBC (test code = 1002) 4.86 M/UL HEMOGLOBIN (test code = 1003) 16.1 G/DL HEMATOCRIT (test code = 1004) 47.7 % MCV (test code = 1005) 98.1 fL MCH (test code = 1006) 33.1 PG MCHC (test code = 1007) 33.8 G/DL RDW (test code = 1038) 12.7 % NEUTROPHILS (test code = 1008) 51.2 % LYMPHOCYTES (test code = 1010) 37.7 % MONOCYTES (test code = 1011) 7.2 % EOSINOPHILS (test code = 1012) 3.0 % BASOPHILS (test code = 1013) 0.5 % IMMATURE GRANULOCYTES (test code = 1036) 0.4 % NUCLEATED RBCS (test code = 1065) 0.0 /100WBC'S PLATELET COUNT (test code = 1015) 196 K/UL ABSOLUTE NEUTROPHILS (test c ode = 1066) 4.72 K/UL ABSOLUTE LYMPHOCYTES (test c ode = 1067) 3.49 K/UL ABSOLUTE MONOCYTES (test cod e = 1068) 0.67 K/UL ABSOLUTE EOSINOPHILS (test c ode = 1040) 0.28 K/UL ABSOLUTE BASOPHILS (test cod e = 1069) 0.05 K/UL ABS IMMATURE GRANULOCYTES (t est code = 1020) 0.04 K/UL ABS NUCLEATED RBCS (test cod e = 85066) 0.00 K/UL Tomás FerrariLIPID [id number] 00:00:00* Test Item Value Reference Range Interpretation Comme nts CHOLESTEROL (test code = 2210) 262 MG/DL TRIGLYCERIDES (test code = 2232) 120 MG/DL HDL CHOLESTEROL (test code = 2220) 64 MG/DL CALC LDL CHOL (test code = 2237) 173 MG/DL RISK RATIO LDL/HDL (test cod e = 2238) 2.70 RATIO Tomás [id number] 00:00:00* Test Item Value Reference Range Interpretation Comme nts TSH, THIRD GENERATION (test code = 2821) 3.670 UIU/ML Tomás FerrariCULTURE, [id number] 00:00:00* Test Item Value Reference Range Interpretation Comme nts CULTURE, URINE (test code = 52285) SPECIMEN NUMBER: [id number] Tomás Ferrari Notes Date/Time Note Provider Source Tomás Ferrari [facility]2024-09-28 23:55:40 [id number] 12:52:21* Ora Aparicio DPM - 11/05/2023 10:20 AM CDT CHIEF COMPLAINT: METATARSAL FRACTURE, LEFT 5th metatarsal HISTORY OF PRESENT ILLNESS: Patient transitioned back to stable shoe and returned to moderate activity. She relates she has no pain and is doing well. Patient has returned to work. ---- Patient has remained in CAM boot. She had xrays performed, but will not have MRI bc consumer attorney is no longer taking her case. She states she has no pain and is doing well. ---- Patient remain in CAM boot and staets moderate pain with pressure. She states she has hired an consumer attorney as this was slip and fall accident at a restaurant. Patient is pending MRI from consumer attorney office. ----- Patient has remained in fracture boot and states improvement to pain. Patient has been minimal weightbearing and had imaging preformed. Patient states injury from slipping and twisting foot when she fell on water in a restaurant 1 week ago. Patient felt pain and unable to weight bear following injury. Patient was seen at ER and placed in a post op shoe. Xrays were taken, but patient does not have images at this time. She states she was told she had an ankle sprain, but she is not tender at there ankle. Patient states pain currently graded 7/10 on palpation OBJECTIVE: PHYSICAL EXAM OF THE LOWER EXTREMITY: VASCULAR: (+) edema (+) ecchymosis (-) erythema Dorsal pedis pulse, graded 2/4; bilateral Posterior tibial pulse, graded 2/4; bilateral Capillary Refill time: within normal limits; bilateral (-) varicosities (+) pedal hair growth NEUROLOGICAL: (+) sensation with 5.07 Lyman Kalpesh monofilament examination to the most distal lower extremity (-) tinel's sign (-) clonus present DERMATOLOGICAL: (-) signs of infection (-) fracture blisters (-) tenting of the skin (-) open wounds (-) abscess (-) ischemic tissue (-) other primary or secondary lesions (+) normal temperature when compared to contralateral limb (+) normal color, tugor, and elasticity. Musculoskeletal (-) pain on palpation, LEFT 5th metatarsal base (-) gross osseous abnormality (-) crepitation Guarded muscle strength to extrinsic pedal muscle groups (-) pain with resistance along tendons, all extrinsic tendons appear to be intact (-) evidence of compartment syndrome (-) evidence of deep vein thrombosis ASSESSMENT: Fracture LEFT 5th metatarsal base LEFT foot peroneal tendonitis TREATMENT: - Extensive visit discussing complications related to tendonitis - CAST - patient to remain in stable shoe gear. Wear at all times. Discussion in detail on proper shoe gear. - X-RAYS - reviewed - possible stress fracture LEFT 5th metatarsal base, no mal alignment noted . REORDERD 09/30/23, MRI deferred - Work note given - Return prn Patient advised to report to my clinic or the emergency room immediately with any questions or concerns. Patient Instructions: Discussion: A detailed discussion was provided to the patient with specific reference to etiology, pathology, alternate treatment options, and prognosis. All risks and complications (including side effects) with each treatment/medication alternative were outlined in detail including but not limited to: Pain, swelling, numbness, loss of function, loss of limb, bleeding, hematoma, scarring, failure to relieve condition, surgery, additional/revisional surgery, reflex sympathetic dystrophy, complex regional pain syndrome, reoccurrence of deformity, joint stiffness, flail toe, bone and/or soft tissue infection, blood clots, pulmonary embolism, possible , delayed or non-healing. X-rays, graphs and drawings were all used to assist with patient comprehension when appropriate. All patients questions were answered and stated they fully understood. No guarantee as to results or outcome of treatment was made. I have discussed with the patient or legally responsible person prior to obtaining consent: the risks, potential benefits and drawbacks, significant alternatives, potential for problems related to recuperation, likelihood of success, and possible results of non-treatment, and the patient or the legally responsible person has agreed to proceed. [place] [id number] 12:52:21 [place] [id number] 12:52:21 Diagnosis Abnormal foot finding - Prim douglas [place] [id number] 12:52:21* Ora Aparicio DPM - 11/05/2023 10:20 AM CDT CHIEF COMPLAINT: METATARSAL FRACTURE, LEFT 5th metatarsal HISTORY OF PRESENT ILLNESS: Patient transitioned back to stable shoe and returned to moderate activity. She relates she has no pain and is doing well. Patient has returned to work. ---- Patient has remained in CAM boot. She had xrays performed, but will not have MRI bc consumer attorney is no longer taking her case. She states she has no pain and is doing well. ---- Patient remain in CAM boot and staets moderate pain with pressure. She states she has hired an consumer attorney as this was slip and fall accident at a restaurant. Patient is pending MRI from consumer attorney office. ----- Patient has remained in fracture boot and states improvement to pain. Patient has been minimal weightbearing and had imaging preformed. Patient states injury from slipping and twisting foot when she fell on water in a restaurant 1 week ago. Patient felt pain and unable to weight bear following injury. Patient was seen at ER and placed in a post op shoe. Xrays were taken, but patient does not have images at this time. She states she was told she had an ankle sprain, but she is not tender at there ankle. Patient states pain currently graded 7/10 on palpation OBJECTIVE: PHYSICAL EXAM OF THE LOWER EXTREMITY: VASCULAR: (+) edema (+) ecchymosis (-) erythema Dorsal pedis pulse, graded 2/4; bilateral Posterior tibial pulse, graded 2/4; bilateral Capillary Refill time: within normal limits; bilateral (-) varicosities (+) pedal hair growth NEUROLOGICAL: (+) sensation with 5.07 Lyman Kalpesh monofilament examination to the most distal lower extremity (-) tinel's sign (-) clonus present DERMATOLOGICAL: (-) signs of infection (-) fracture blisters (-) tenting of the skin (-) open wounds (-) abscess (-) ischemic tissue (-) other primary or secondary lesions (+) normal temperature when compared to contralateral limb (+) normal color, tugor, and elasticity. Musculoskeletal (-) pain on palpation, LEFT 5th metatarsal base (-) gross osseous abnormality (-) crepitation Guarded muscle strength to extrinsic pedal muscle groups (-) pain with resistance along tendons, all extrinsic tendons appear to be intact (-) evidence of compartment syndrome (-) evidence of deep vein thrombosis ASSESSMENT: Fracture LEFT 5th metatarsal base LEFT foot peroneal tendonitis TREATMENT: - Extensive visit discussing complications related to tendonitis - CAST - patient to remain in stable shoe gear. Wear at all times. Discussion in detail on proper shoe gear. - X-RAYS - reviewed - possible stress fracture LEFT 5th metatarsal base, no mal alignment noted . REORDERD 09/30/23, MRI deferred - Work note given - Return prn Patient advised to report to my clinic or the emergency room immediately with any questions or concerns. Patient Instructions: Discussion: A detailed discussion was provided to the patient with specific reference to etiology, pathology, alternate treatment options, and prognosis. All risks and complications (including side effects) with each treatment/medication alternative were outlined in detail including but not limited to: Pain, swelling, numbness, loss of function, loss of limb, bleeding, hematoma, scarring, failure to relieve condition, surgery, additional/revisional surgery, reflex sympathetic dystrophy, complex regional pain syndrome, reoccurrence of deformity, joint stiffness, flail toe, bone and/or soft tissue infection, blood clots, pulmonary embolism, possible , delayed or non-healing. X-rays, graphs and drawings were all used to assist with patient comprehension when appropriate. All patients questions were answered and stated they fully understood. No guarantee as to results or outcome of treatment was made. I have discussed with the patient or legally responsible person prior to obtaining consent: the risks, potential benefits and drawbacks, significant alternatives, potential for problems related to recuperation, likelihood of success, and possible results of non-treatment, and the patient or the legally responsible person has agreed to proceed. [facility] [id number] 12:52:21 [place] [id number] 12:52:21 Diagnosis Abnormal foot finding - Prim douglas [facility] [id number] 12:47:12* Ora Aparicio DPM - 10/08/2023 10:20 AM CDT CHIEF COMPLAINT: METATARSAL FRACTURE, LEFT 5th metatarsal HISTORY OF PRESENT ILLNESS: Patient has remained in CAM boot. She had xrays performed, but will not have MRI bc consumer attorney is no longer taking her case. She states she has no pain and is doing well. ---- Patient remain in CAM boot and staets moderate pain with pressure. She states she has hired an consumer attorney as this was slip and fall accident at a restaurant. Patient is pending MRI from consumer attorney office. ----- Patient has remained in fracture boot and states improvement to pain. Patient has been minimal weightbearing and had imaging preformed. Patient states injury from slipping and twisting foot when she fell on water in a restaurant 1 week ago. Patient felt pain and unable to weight bear following injury. Patient was seen at ER and placed in a post op shoe. Xrays were taken, but patient does not have images at this time. She states she was told she had an ankle sprain, but she is not tender at there ankle. Patient states pain currently graded 7/10 on palpation OBJECTIVE: PHYSICAL EXAM OF THE LOWER EXTREMITY: VASCULAR: (+) edema (+) ecchymosis (-) erythema Dorsal pedis pulse, graded 2/4; bilateral Posterior tibial pulse, graded 2/4; bilateral Capillary Refill time: within normal limits; bilateral (-) varicosities (+) pedal hair growth NEUROLOGICAL: (+) sensation with 5.07 Lyman Kalpesh monofilament examination to the most distal lower extremity (-) tinel's sign (-) clonus present DERMATOLOGICAL: (-) signs of infection (-) fracture blisters (-) tenting of the skin (-) open wounds (-) abscess (-) ischemic tissue (-) other primary or secondary lesions (+) normal temperature when compared to contralateral limb (+) normal color, tugor, and elasticity. Musculoskeletal (-) pain on palpation, LEFT 5th metatarsal base (-) gross osseous abnormality (-) crepitation Guarded muscle strength to extrinsic pedal muscle groups (-) pain with resistance along tendons, all extrinsic tendons appear to be intact (-) evidence of compartment syndrome (-) evidence of deep vein thrombosis ASSESSMENT: Fracture LEFT 5th metatarsal base LEFT foot peroneal tendonitis TREATMENT: - Extensive visit discussing complications related to me fractures - CAST - patient to transition into stable shoe gear. Wear at all times. Discussion in detail on proper shoe gear. - X-RAYS - reviewed - possible stress fracture LEFT 5th metatarsal base, no mal alignment noted . REORDERD 09/30/23, MRI deferred - Work note given - Return in 2 week Patient advised to report to my clinic or the emergency room immediately with any questions or concerns. Patient Instructions: Discussion: A detailed discussion was provided to the patient with specific reference to etiology, pathology, alternate treatment options, and prognosis. All risks and complications (including side effects) with each treatment/medication alternative were outlined in detail including but not limited to: Pain, swelling, numbness, loss of function, loss of limb, bleeding, hematoma, scarring, failure to relieve condition, surgery, additional/revisional surgery, reflex sympathetic dystrophy, complex regional pain syndrome, reoccurrence of deformity, joint stiffness, flail toe, bone and/or soft tissue infection, blood clots, pulmonary embolism, possible , delayed or non-healing. X-rays, graphs and drawings were all used to assist with patient comprehension when appropriate. All patients questions were answered and stated they fully understood. No guarantee as to results or outcome of treatment was made. I have discussed with the patient or legally responsible person prior to obtaining consent: the risks, potential benefits and drawbacks, significant alternatives, potential for problems related to recuperation, likelihood of success, and possible results of non-treatment, and the patient or the legally responsible person has agreed to proceed. [facility] [id number] 12:47:12Upcoming Encounters Health Maintenance Due Date Last Done Comments CT Colonography 1963 Colonoscopy 1963 FIT 1963 FOBT 1963 Sigmoidoscopy 1963 DTaP/Tdap/Td Vaccines (1 - Tdap) 12/16/1982 Hepatitis B Vaccines (1 of 3 - 19+ 3-dose series) 12/16/1982 Pap Smear 12/16/1984 Cervical Cancer Screening 12/16/1993 HPV/Cotest 12/16/1993 Mammogram 2003 Zoster Vaccines (1 of 2) 12/16/2013 Influenza Vaccine (#1) 2023 Colorectal Cancer Screening 03/18/2024 FIT-DNA 03/18/2024 03/18/2021, 03/18/2021 HIB Vaccines Aged Out No longer eligi ble based on patient's age to complete this topic HPV Vaccines Aged Out No longer eligi ble based on patient's age to complete this topic Hepatitis A Vaccines Aged Out No long er eligible based on patient's age to complete this topic IPV Vaccines Aged Out No longer eligi ble based on patient's age to complete this topic Meningococcal Vaccine Aged Out No rafa shamar eligible based on patient's age to complete this topic Pneumococcal Vaccine: Pediatrics (0 to 5 Years) and At-Risk Patients (6 to 64 Years) Aged Out No longer eligible b ased on patient's age to complete this topic Rotavirus Vaccines Aged Out No longer eligible based on patient's age to complete this topic [facility] [id number] 12:47:12 Diagnosis Abnormal foot finding - Prim douglas [facility] [id number] 12:47:11* Ora Aparicio, EVA - 10/08/2023 10:20 AM CDT CHIEF COMPLAINT: METATARSAL FRACTURE, LEFT 5th metatarsal HISTORY OF PRESENT ILLNESS: Patient has remained in CAM boot. She had xrays performed, but will not have MRI bc consumer attorney is no longer taking her case. She states she has no pain and is doing well. ---- Patient remain in CAM boot and staets moderate pain with pressure. She states she has hired an consumer attorney as this was slip and fall accident at a restaurant. Patient is pending MRI from consumer attorney office. ----- Patient has remained in fracture boot and states improvement to pain. Patient has been minimal weightbearing and had imaging preformed. Patient states injury from slipping and twisting foot when she fell on water in a restaurant 1 week ago. Patient felt pain and unable to weight bear following injury. Patient was seen at ER and placed in a post op shoe. Xrays were taken, but patient does not have images at this time. She states she was told she had an ankle sprain, but she is not tender at there ankle. Patient states pain currently graded 7/10 on palpation OBJECTIVE: PHYSICAL EXAM OF THE LOWER EXTREMITY: VASCULAR: (+) edema (+) ecchymosis (-) erythema Dorsal pedis pulse, graded 2/4; bilateral Posterior tibial pulse, graded 2/4; bilateral Capillary Refill time: within normal limits; bilateral (-) varicosities (+) pedal hair growth NEUROLOGICAL: (+) sensation with 5.07 Lyman Kalpesh monofilament examination to the most distal lower extremity (-) tinel's sign (-) clonus present DERMATOLOGICAL: (-) signs of infection (-) fracture blisters (-) tenting of the skin (-) open wounds (-) abscess (-) ischemic tissue (-) other primary or secondary lesions (+) normal temperature when compared to contralateral limb (+) normal color, tugor, and elasticity. Musculoskeletal (-) pain on palpation, LEFT 5th metatarsal base (-) gross osseous abnormality (-) crepitation Guarded muscle strength to extrinsic pedal muscle groups (-) pain with resistance along tendons, all extrinsic tendons appear to be intact (-) evidence of compartment syndrome (-) evidence of deep vein thrombosis ASSESSMENT: Fracture LEFT 5th metatarsal base LEFT foot peroneal tendonitis TREATMENT: - Extensive visit discussing complications related to me fractures - CAST - patient to transition into stable shoe gear. Wear at all times. Discussion in detail on proper shoe gear. - X-RAYS - reviewed - possible stress fracture LEFT 5th metatarsal base, no mal alignment noted . REORDERD 09/30/23, MRI deferred - Work note given - Return in 2 week Patient advised to report to my clinic or the emergency room immediately with any questions or concerns. Patient Instructions: Discussion: A detailed discussion was provided to the patient with specific reference to etiology, pathology, alternate treatment options, and prognosis. All risks and complications (including side effects) with each treatment/medication alternative were outlined in detail including but not limited to: Pain, swelling, numbness, loss of function, loss of limb, bleeding, hematoma, scarring, failure to relieve condition, surgery, additional/revisional surgery, reflex sympathetic dystrophy, complex regional pain syndrome, reoccurrence of deformity, joint stiffness, flail toe, bone and/or soft tissue infection, blood clots, pulmonary embolism, possible , delayed or non-healing. X-rays, graphs and drawings were all used to assist with patient comprehension when appropriate. All patients questions were answered and stated they fully understood. No guarantee as to results or outcome of treatment was made. I have discussed with the patient or legally responsible person prior to obtaining consent: the risks, potential benefits and drawbacks, significant alternatives, potential for problems related to recuperation, likelihood of success, and possible results of non-treatment, and the patient or the legally responsible person has agreed to proceed. Faye [place] [id number] 12:47:11Upcoming Encounters Health Maintenance Due Date Last Done Comments CT Colonography 1963 Colonoscopy 1963 FIT 1963 FOBT 1963 Sigmoidoscopy 1963 DTaP/Tdap/Td Vaccines (1 - Tdap) 12/16/1982 Hepatitis B Vaccines (1 of 3 - 19+ 3-dose series) 12/16/1982 Pap Smear 12/16/1984 Cervical Cancer Screening 12/16/1993 HPV/Cotest 12/16/1993 Mammogram 2003 Zoster Vaccines (1 of 2) 12/16/2013 Influenza Vaccine (#1) 2023 Colorectal Cancer Screening 03/18/2024 FIT-DNA 03/18/2024 03/18/2021, 03/18/2021 HIB Vaccines Aged Out No longer eligi ble based on patient's age to complete this topic HPV Vaccines Aged Out No longer eligi ble based on patient's age to complete this topic Hepatitis A Vaccines Aged Out No long er eligible based on patient's age to complete this topic IPV Vaccines Aged Out No longer eligi ble based on patient's age to complete this topic Meningococcal Vaccine Aged Out No rafa shamar eligible based on patient's age to complete this topic Pneumococcal Vaccine: Pediatrics (0 to 5 Years) and At-Risk Patients (6 to 64 Years) Aged Out No longer eligible b ased on patient's age to complete this topic Rotavirus Vaccines Aged Out No longer eligible based on patient's age to complete this topic [facility] [id number] 12:47:11 Diagnosis Abnormal foot finding - Prim douglas [facility] [id number] 11:26:34* Ora Aparicio DPM - 10/01/2023 10:40 AM CDT CHIEF COMPLAINT: METATARSAL FRACTURE, LEFT 5th metatarsal HISTORY OF PRESENT ILLNESS: Patient remain in CAM boot and staets moderate pain with pressure. She states she has hired an consumer attorney as this was slip and fall accident at a restaurant. Patient is pending MRI from consumer attorney office. ----- Patient has remained in fracture boot and states improvement to pain. Patient has been minimal weightbearing and had imaging preformed. Patient states injury from slipping and twisting foot when she fell on water in a restaurant 1 week ago. Patient felt pain and unable to weight bear following injury. Patient was seen at ER and placed in a post op shoe. Xrays were taken, but patient does not have images at this time. She states she was told she had an ankle sprain, but she is not tender at there ankle. Patient states pain currently graded 7/10 on palpation OBJECTIVE: PHYSICAL EXAM OF THE LOWER EXTREMITY: VASCULAR: (+) edema (+) ecchymosis (-) erythema Dorsal pedis pulse, graded 2/4; bilateral Posterior tibial pulse, graded 2/4; bilateral Capillary Refill time: within normal limits; bilateral (-) varicosities (+) pedal hair growth NEUROLOGICAL: (+) sensation with 5.07 Lyman Kalpesh monofilament examination to the most distal lower extremity (-) tinel's sign (-) clonus present DERMATOLOGICAL: (-) signs of infection (-) fracture blisters (-) tenting of the skin (-) open wounds (-) abscess (-) ischemic tissue (-) other primary or secondary lesions (+) normal temperature when compared to contralateral limb (+) normal color, tugor, and elasticity. Musculoskeletal (+) pain on palpation, LEFT 5th metatarsal base (-) gross osseous abnormality (-) crepitation Guarded muscle strength to extrinsic pedal muscle groups (-) pain with resistance along tendons, all extrinsic tendons appear to be intact (-) evidence of compartment syndrome (-) evidence of deep vein thrombosis ASSESSMENT: Fracture LEFT 5th metatarsal base TREATMENT: - Extensive visit discussing complications related to me fractures - CAST - APPLIED 2 jorge compression for stabilization and edema control. Remain in CAM boot with weight bearing at all times - X-RAYS - reviewed - possible stress fracture LEFT 5th metatarsal base, no mal alignment noted . REORDERD 09/30/23, MRI pending - Weight-bearing - NONE, in fracture boot, DISPENSED - Return in 2 week Patient advised to report to my clinic or the emergency room immediately with any questions or concerns. Patient Instructions: Discussion: A detailed discussion was provided to the patient with specific reference to etiology, pathology, alternate treatment options, and prognosis. All risks and complications (including side effects) with each treatment/medication alternative were outlined in detail including but not limited to: Pain, swelling, numbness, loss of function, loss of limb, bleeding, hematoma, scarring, failure to relieve condition, surgery, additional/revisional surgery, reflex sympathetic dystrophy, complex regional pain syndrome, reoccurrence of deformity, joint stiffness, flail toe, bone and/or soft tissue infection, blood clots, pulmonary embolism, possible , delayed or non-healing. X-rays, graphs and drawings were all used to assist with patient comprehension when appropriate. All patients questions were answered and stated they fully understood. No guarantee as to results or outcome of treatment was made. I have discussed with the patient or legally responsible person prior to obtaining consent: the risks, potential benefits and drawbacks, significant alternatives, potential for problems related to recuperation, likelihood of success, and possible results of non-treatment, and the patient or the legally responsible person has agreed to proceed. T [facility] [id number] 11:26:34Upcoming Encounters Health Maintenance Due Date Last Done Comments CT Colonography 1963 Colonoscopy 1963 FIT 1963 FOBT 1963 Sigmoidoscopy 1963 DTaP/Tdap/Td Vaccines (1 - Tdap) 12/16/1982 Hepatitis B Vaccines (1 of 3 - 19+ 3-dose series) 12/16/1982 Pap Smear 12/16/1984 Cervical Cancer Screening 12/16/1993 HPV/Cotest 12/16/1993 Mammogram 2003 Zoster Vaccines (1 of 2) 12/16/2013 Influenza Vaccine (#1) 2023 Colorectal Cancer Screening 03/18/2024 FIT-DNA 03/18/2024 03/18/2021, 03/18/2021 HIB Vaccines Aged Out No longer eligi ble based on patient's age to complete this topic HPV Vaccines Aged Out No longer eligi ble based on patient's age to complete this topic Hepatitis A Vaccines Aged Out No long er eligible based on patient's age to complete this topic IPV Vaccines Aged Out No longer eligi ble based on patient's age to complete this topic Meningococcal Vaccine Aged Out No rafa shamar eligible based on patient's age to complete this topic Pneumococcal Vaccine: Pediatrics (0 to 5 Years) and At-Risk Patients (6 to 64 Years) Aged Out No longer eligible b ased on patient's age to complete this topic Rotavirus Vaccines Aged Out No longer eligible based on patient's age to complete this topic [facility] [id number] 11:26:34 Diagnosis Abnormal foot finding - Aster cole [facility] [id number] 11:26:34* Ora Aparicio, EVA - 10/01/2023 10:40 AM CDT CHIEF COMPLAINT: METATARSAL FRACTURE, LEFT 5th metatarsal HISTORY OF PRESENT ILLNESS: Patient remain in CAM boot and staets moderate pain with pressure. She states she has hired an consumer attorney as this was slip and fall accident at a restaurant. Patient is pending MRI from consumer attorney office. ----- Patient has remained in fracture boot and states improvement to pain. Patient has been minimal weightbearing and had imaging preformed. Patient states injury from slipping and twisting foot when she fell on water in a restaurant 1 week ago. Patient felt pain and unable to weight bear following injury. Patient was seen at ER and placed in a post op shoe. Xrays were taken, but patient does not have images at this time. She states she was told she had an ankle sprain, but she is not tender at there ankle. Patient states pain currently graded 7/10 on palpation OBJECTIVE: PHYSICAL EXAM OF THE LOWER EXTREMITY: VASCULAR: (+) edema (+) ecchymosis (-) erythema Dorsal pedis pulse, graded 2/4; bilateral Posterior tibial pulse, graded 2/4; bilateral Capillary Refill time: within normal limits; bilateral (-) varicosities (+) pedal hair growth NEUROLOGICAL: (+) sensation with 5.07 Lyman Kalpesh monofilament examination to the most distal lower extremity (-) tinel's sign (-) clonus present DERMATOLOGICAL: (-) signs of infection (-) fracture blisters (-) tenting of the skin (-) open wounds (-) abscess (-) ischemic tissue (-) other primary or secondary lesions (+) normal temperature when compared to contralateral limb (+) normal color, tugor, and elasticity. Musculoskeletal (+) pain on palpation, LEFT 5th metatarsal base (-) gross osseous abnormality (-) crepitation Guarded muscle strength to extrinsic pedal muscle groups (-) pain with resistance along tendons, all extrinsic tendons appear to be intact (-) evidence of compartment syndrome (-) evidence of deep vein thrombosis ASSESSMENT: Fracture LEFT 5th metatarsal base TREATMENT: - Extensive visit discussing complications related to me fractures - CAST - APPLIED 2 jorge compression for stabilization and edema control. Remain in CAM boot with weight bearing at all times - X-RAYS - reviewed - possible stress fracture LEFT 5th metatarsal base, no mal alignment noted . REORDERD 09/30/23, MRI pending - Weight-bearing - NONE, in fracture boot, DISPENSED - Return in 2 week Patient advised to report to my clinic or the emergency room immediately with any questions or concerns. Patient Instructions: Discussion: A detailed discussion was provided to the patient with specific reference to etiology, pathology, alternate treatment options, and prognosis. All risks and complications (including side effects) with each treatment/medication alternative were outlined in detail including but not limited to: Pain, swelling, numbness, loss of function, loss of limb, bleeding, hematoma, scarring, failure to relieve condition, surgery, additional/revisional surgery, reflex sympathetic dystrophy, complex regional pain syndrome, reoccurrence of deformity, joint stiffness, flail toe, bone and/or soft tissue infection, blood clots, pulmonary embolism, possible , delayed or non-healing. X-rays, graphs and drawings were all used to assist with patient comprehension when appropriate. All patients questions were answered and stated they fully understood. No guarantee as to results or outcome of treatment was made. I have discussed with the patient or legally responsible person prior to obtaining consent: the risks, potential benefits and drawbacks, significant alternatives, potential for problems related to recuperation, likelihood of success, and possible results of non-treatment, and the patient or the legally responsible person has agreed to proceed. [facility] [id number] 11:26:34Upcoming Encounters Health Maintenance Due Date Last Done Comments CT Colonography 1963 Colonoscopy 1963 FIT 1963 FOBT 1963 Sigmoidoscopy 1963 DTaP/Tdap/Td Vaccines (1 - Tdap) 12/16/1982 Hepatitis B Vaccines (1 of 3 - 19+ 3-dose series) 12/16/1982 Pap Smear 12/16/1984 Cervical Cancer Screening 12/16/1993 HPV/Cotest 12/16/1993 Mammogram 2003 Zoster Vaccines (1 of 2) 12/16/2013 Influenza Vaccine (#1) 2023 Colorectal Cancer Screening 03/18/2024 FIT-DNA 03/18/2024 03/18/2021, 03/18/2021 HIB Vaccines Aged Out No longer eligi ble based on patient's age to complete this topic HPV Vaccines Aged Out No longer eligi ble based on patient's age to complete this topic Hepatitis A Vaccines Aged Out No long er eligible based on patient's age to complete this topic IPV Vaccines Aged Out No longer eligi ble based on patient's age to complete this topic Meningococcal Vaccine Aged Out No rafa shamar eligible based on patient's age to complete this topic Pneumococcal Vaccine: Pediatrics (0 to 5 Years) and At-Risk Patients (6 to 64 Years) Aged Out No longer eligible b ased on patient's age to complete this topic Rotavirus Vaccines Aged Out No longer eligible based on patient's age to complete this topic [facility] [id number] 11:26:34 Diagnosis Abnormal foot finding - Prim douglas [facility] [id number] 07:28:25* Ora Aparicio DPM - 09/17/2023 12:20 PM CDT CHIEF COMPLAINT: METATARSAL FRACTURE, LEFT 5th metatarsal HISTORY OF PRESENT ILLNESS: Patient has remained in fracture boot and states improvement to pain. Patient has been minimal weightbearing and had imaging preformed. Patient states injury from slipping and twisting foot when she fell on water in a restaurant 1 week ago. Patient felt pain and unable to weight bear following injury. Patient was seen at ER and placed in a post op shoe. Xrays were taken, but patient does not have images at this time. She states she was told she had an ankle sprain, but she is not tender at there ankle. Patient states pain currently graded 7/10 on palpation OBJECTIVE: PHYSICAL EXAM OF THE LOWER EXTREMITY: VASCULAR: (+) edema (+) ecchymosis (-) erythema Dorsal pedis pulse, graded 2/4; bilateral Posterior tibial pulse, graded 2/4; bilateral Capillary Refill time: within normal limits; bilateral (-) varicosities (+) pedal hair growth NEUROLOGICAL: (+) sensation with 5.07 Lyman Kalpesh monofilament examination to the most distal lower extremity (-) tinel's sign (-) clonus present DERMATOLOGICAL: (-) signs of infection (-) fracture blisters (-) tenting of the skin (-) open wounds (-) abscess (-) ischemic tissue (-) other primary or secondary lesions (+) normal temperature when compared to contralateral limb (+) normal color, tugor, and elasticity. Musculoskeletal (+) pain on palpation, LEFT 5th metatarsal base (-) gross osseous abnormality (-) crepitation Guarded muscle strength to extrinsic pedal muscle groups (-) pain with resistance along tendons, all extrinsic tendons appear to be intact (-) evidence of compartment syndrome (-) evidence of deep vein thrombosis ASSESSMENT: Fracture LEFT 5th metatarsal base TREATMENT: - Extensive visit discussing complications related to me fractures - CAST - APPLIED 2 jorge compression for stabilization and edema control. Remain in CAM boot with weight bearing at all times - X-RAYS - reviewed - possible stress fracture LEFT 5th metatarsal base, no mal alignment noted . Will consider MRI - Weight-bearing - NONE, in fracture boot, DISPENSED - Return in 2 week Patient advised to report to my clinic or the emergency room immediately with any questions or concerns. Patient Instructions: Discussion: A detailed discussion was provided to the patient with specific reference to etiology, pathology, alternate treatment options, and prognosis. All risks and complications (including side effects) with each treatment/medication alternative were outlined in detail including but not limited to: Pain, swelling, numbness, loss of function, loss of limb, bleeding, hematoma, scarring, failure to relieve condition, surgery, additional/revisional surgery, reflex sympathetic dystrophy, complex regional pain syndrome, reoccurrence of deformity, joint stiffness, flail toe, bone and/or soft tissue infection, blood clots, pulmonary embolism, possible , delayed or non-healing. X-rays, graphs and drawings were all used to assist with patient comprehension when appropriate. All patients questions were answered and stated they fully understood. No guarantee as to results or outcome of treatment was made. I have discussed with the patient or legally responsible person prior to obtaining consent: the risks, potential benefits and drawbacks, significant alternatives, potential for problems related to recuperation, likelihood of success, and possible results of non-treatment, and the patient or the legally responsible person has agreed to proceed. [facility] [id number] 07:28:25Upcoming Encounters Health Maintenance Due Date Last Done Comments CT Colonography 1963 Colonoscopy 1963 FIT 1963 FOBT 1963 Sigmoidoscopy 1963 DTaP/Tdap/Td Vaccines (1 - Tdap) 12/16/1982 Hepatitis B Vaccines (1 of 3 - 19+ 3-dose series) 12/16/1982 Pap Smear 12/16/1984 Cervical Cancer Screening 12/16/1993 HPV/Cotest 12/16/1993 Mammogram 2003 Zoster Vaccines (1 of 2) 12/16/2013 Influenza Vaccine (#1) 2023 Colorectal Cancer Screening 03/18/2024 FIT-DNA 03/18/2024 03/18/2021, 03/18/2021 HIB Vaccines Aged Out No longer eligi ble based on patient's age to complete this topic HPV Vaccines Aged Out No longer eligi ble based on patient's age to complete this topic Hepatitis A Vaccines Aged Out No long er eligible based on patient's age to complete this topic IPV Vaccines Aged Out No longer eligi ble based on patient's age to complete this topic Meningococcal Vaccine Aged Out No rafa shamar eligible based on patient's age to complete this topic Pneumococcal Vaccine: Pediatrics (0 to 5 Years) and At-Risk Patients (6 to 64 Years) Aged Out No longer eligible b ased on patient's age to complete this topic Rotavirus Vaccines Aged Out No longer eligible based on patient's age to complete this topic [facility] [id number] 07:28:25 Diagnosis Abnormal foot finding - Prim douglas [facility] [id number] 07:28:24* Ora Aparicio DPM - 09/17/2023 12:20 PM CDT CHIEF COMPLAINT: METATARSAL FRACTURE, LEFT 5th metatarsal HISTORY OF PRESENT ILLNESS: Patient has remained in fracture boot and states improvement to pain. Patient has been minimal weightbearing and had imaging preformed. Patient states injury from slipping and twisting foot when she fell on water in a restaurant 1 week ago. Patient felt pain and unable to weight bear following injury. Patient was seen at ER and placed in a post op shoe. Xrays were taken, but patient does not have images at this time. She states she was told she had an ankle sprain, but she is not tender at there ankle. Patient states pain currently graded 7/10 on palpation OBJECTIVE: PHYSICAL EXAM OF THE LOWER EXTREMITY: VASCULAR: (+) edema (+) ecchymosis (-) erythema Dorsal pedis pulse, graded 2/4; bilateral Posterior tibial pulse, graded 2/4; bilateral Capillary Refill time: within normal limits; bilateral (-) varicosities (+) pedal hair growth NEUROLOGICAL: (+) sensation with 5.07 Lyman Kalpesh monofilament examination to the most distal lower extremity (-) tinel's sign (-) clonus present DERMATOLOGICAL: (-) signs of infection (-) fracture blisters (-) tenting of the skin (-) open wounds (-) abscess (-) ischemic tissue (-) other primary or secondary lesions (+) normal temperature when compared to contralateral limb (+) normal color, tugor, and elasticity. Musculoskeletal (+) pain on palpation, LEFT 5th metatarsal base (-) gross osseous abnormality (-) crepitation Guarded muscle strength to extrinsic pedal muscle groups (-) pain with resistance along tendons, all extrinsic tendons appear to be intact (-) evidence of compartment syndrome (-) evidence of deep vein thrombosis ASSESSMENT: Fracture LEFT 5th metatarsal base TREATMENT: - Extensive visit discussing complications related to me fractures - CAST - APPLIED 2 jorge compression for stabilization and edema control. Remain in CAM boot with weight bearing at all times - X-RAYS - reviewed - possible stress fracture LEFT 5th metatarsal base, no mal alignment noted . Will consider MRI - Weight-bearing - NONE, in fracture boot, DISPENSED - Return in 2 week Patient advised to report to my clinic or the emergency room immediately with any questions or concerns. Patient Instructions: Discussion: A detailed discussion was provided to the patient with specific reference to etiology, pathology, alternate treatment options, and prognosis. All risks and complications (including side effects) with each treatment/medication alternative were outlined in detail including but not limited to: Pain, swelling, numbness, loss of function, loss of limb, bleeding, hematoma, scarring, failure to relieve condition, surgery, additional/revisional surgery, reflex sympathetic dystrophy, complex regional pain syndrome, reoccurrence of deformity, joint stiffness, flail toe, bone and/or soft tissue infection, blood clots, pulmonary embolism, possible , delayed or non-healing. X-rays, graphs and drawings were all used to assist with patient comprehension when appropriate. All patients questions were answered and stated they fully understood. No guarantee as to results or outcome of treatment was made. I have discussed with the patient or legally responsible person prior to obtaining consent: the risks, potential benefits and drawbacks, significant alternatives, potential for problems related to recuperation, likelihood of success, and possible results of non-treatment, and the patient or the legally responsible person has agreed to proceed. [facility]2024-08-02 07:28:24Upcoming Encounters Health Maintenance Due Date Last Done Comments CT Colonography 1963 Colonoscopy 1963 FIT 1963 FOBT 1963 Sigmoidoscopy 1963 DTaP/Tdap/Td Vaccines (1 - Tdap) 12/16/1982 Hepatitis B Vaccines (1 of 3 - 19+ 3-dose series) 12/16/1982 Pap Smear 12/16/1984 Cervical Cancer Screening 12/16/1993 HPV/Cotest 12/16/1993 Mammogram 2003 Zoster Vaccines (1 of 2) 12/16/2013 Influenza Vaccine (#1) 2023 Colorectal Cancer Screening 03/18/2024 FIT-DNA 03/18/2024 03/18/2021, 03/18/2021 HIB Vaccines Aged Out No longer eligi ble based on patient's age to complete this topic HPV Vaccines Aged Out No longer eligi ble based on patient's age to complete this topic Hepatitis A Vaccines Aged Out No long er eligible based on patient's age to complete this topic IPV Vaccines Aged Out No longer eligi ble based on patient's age to complete this topic Meningococcal Vaccine Aged Out No rafa shamar eligible based on patient's age to complete this topic Pneumococcal Vaccine: Pediatrics (0 to 5 Years) and At-Risk Patients (6 to 64 Years) Aged Out No longer eligible b ased on patient's age to complete this topic Rotavirus Vaccines Aged Out No longer eligible based on patient's age to complete this topic [facility] [id number] 07:28:24 Diagnosis Abnormal foot finding - Aster cole [facility] [id number] 12:59:37* Ora Aparicio DPM - 09/10/2023 10:40 AM CDT CHIEF COMPLAINT: METATARSAL FRACTURE, LEFT 5th metatarsal HISTORY OF PRESENT ILLNESS: Patient states injury from slipping and twisting foot when she fell on water in a restaurant 1 week ago. Patient felt pain and unable to weight bear following injury. Patient was seen at ER and placed in a post op shoe. Xrays were taken, but patient does not have images at this time. She states she was told she had an ankle sprain, but she is not tender at there ankle. Patient states pain currently graded 7/10 on palpation OBJECTIVE: PHYSICAL EXAM OF THE LOWER EXTREMITY: VASCULAR: (+) edema (+) ecchymosis (-) erythema Dorsal pedis pulse, graded 2/4; bilateral Posterior tibial pulse, graded 2/4; bilateral Capillary Refill time: within normal limits; bilateral (-) varicosities (+) pedal hair growth NEUROLOGICAL: (+) sensation with 5.07 Lyman Kalpesh monofilament examination to the most distal lower extremity (-) tinel's sign (-) clonus present DERMATOLOGICAL: (-) signs of infection (-) fracture blisters (-) tenting of the skin (-) open wounds (-) abscess (-) ischemic tissue (-) other primary or secondary lesions (+) normal temperature when compared to contralateral limb (+) normal color, tugor, and elasticity. Musculoskeletal (+) pain on palpation, LEFT 5th metatarsal base (-) gross osseous abnormality (-) crepitation Guarded muscle strength to extrinsic pedal muscle groups (-) pain with resistance along tendons, all extrinsic tendons appear to be intact (-) evidence of compartment syndrome (-) evidence of deep vein thrombosis ASSESSMENT: Fracture LEFT 5th metatarsal base TREATMENT: - Extensive visit discussing complications related to me fractures - PAIN - PRESCRIBED - CAST - APPLIED 2 jorge compression for stabilization and edema control. Will plan for weekly serial casting x4. Provided splint/cast precautions - X-RAYS - ORDERED - Weight-bearing - NONE, with crutches in fracture boot, DISPENSED - Return in 1 week Patient advised to report to my clinic or the emergency room immediately with any questions or concerns. Patient Instructions: Discussion: A detailed discussion was provided to the patient with specific reference to etiology, pathology, alternate treatment options, and prognosis. All risks and complications (including side effects) with each treatment/medication alternative were outlined in detail including but not limited to: Pain, swelling, numbness, loss of function, loss of limb, bleeding, hematoma, scarring, failure to relieve condition, surgery, additional/revisional surgery, reflex sympathetic dystrophy, complex regional pain syndrome, reoccurrence of deformity, joint stiffness, flail toe, bone and/or soft tissue infection, blood clots, pulmonary embolism, possible , delayed or non-healing. X-rays, graphs and drawings were all used to assist with patient comprehension when appropriate. All patients questions were answered and stated they fully understood. No guarantee as to results or outcome of treatment was made. I have discussed with the patient or legally responsible person prior to obtaining consent: the risks, potential benefits and drawbacks, significant alternatives, potential for problems related to recuperation, likelihood of success, and possible results of non-treatment, and the patient or the legally responsible person has agreed to proceed. [place] [id number] 12:59:37Upcoming Encounters Health Maintenance Due Date Last Done Comments CT Colonography 1963 Colonoscopy 1963 FIT 1963 FOBT 1963 Sigmoidoscopy 1963 DTaP/Tdap/Td Vaccines (1 - Tdap) 12/16/1982 Hepatitis B Vaccines (1 of 3 - 19+ 3-dose series) 12/16/1982 Pap Smear 12/16/1984 Cervical Cancer Screening 12/16/1993 HPV/Cotest 12/16/1993 Mammogram 2003 Zoster Vaccines (1 of 2) 12/16/2013 Influenza Vaccine (#1) 2023 Colorectal Cancer Screening 03/18/2024 FIT-DNA 03/18/2024 03/18/2021, 03/18/2021 HIB Vaccines Aged Out No longer eligi ble based on patient's age to complete this topic HPV Vaccines Aged Out No longer eligi ble based on patient's age to complete this topic Hepatitis A Vaccines Aged Out No long er eligible based on patient's age to complete this topic IPV Vaccines Aged Out No longer eligi ble based on patient's age to complete this topic Meningococcal Vaccine Aged Out No rafa shamar eligible based on patient's age to complete this topic Pneumococcal Vaccine: Pediatrics (0 to 5 Years) and At-Risk Patients (6 to 64 Years) Aged Out No longer eligible b ased on patient's age to complete this topic Rotavirus Vaccines Aged Out No longer eligible based on patient's age to complete this topic [facility] [id number] 12:59:37 Diagnosis Abnormal foot finding - Prim douglas [facility] [id number] 15:26:00 [facility]) Hospitalist Discharge Summary REPORT#:[id number] REPORT STATUS: Signed REPORT INITIALIZATION DATE:02/03/23 TIME:1525 PATIENT: DULCE MEZA UNIT #: [id number] ROOM/BED: [place] [id number] : [birth year] AGE: 57 SEX: F ATTEND: Harjinder Hester MD ADM AUTHOR: Rojas Banerjee MD REPT SERVICE DT/TIME: 02/03/23 1526 * ALL edits or amendments must be made on the electronic/computer document * General Information Discharge date: 02/03/23 Discharge diagnosis: Vaginal prolapse Hospital course: Vaginal prolapse s/p vaginal reconstruction by Dr. Bond 02/02/23 Received cefazolin radha op Holding anticoagulation and antiplatelets Discussed with Dr. Bond - cleared to dc and will f/u outpatient Acute urinary retention post-op Required olson catheter insertion. Will discharge with olson and f/u outpatient. Peripheral vascular disease status post recent intervention to the right leg. Patient had preop clearance as per [employer]ENCY LEGAL COUNSEL it was okay to hold Plavix. Hypertension Resume patient's lisinopril keep on as needed hydralazine Dyslipidemia Continue with statin Possible underlying mood disorder Resume home medication Consultants: gynecology Med Rec Med Rec Discharge meds: Continue taking these medications: CLOPIDOGREL (PLAVIX) 75 MG TAB 75 MILLIGRAM ORAL DAILY. ATORVASTATIN (LIPITOR) 80 MG TAB 80 MILLIGRAM ORAL BEDTIME. buPROPion HCL (WELLBUTRIN) 75 MG TAB 75 MILLIGRAM ORAL TWICE DAILY. LISINOPRIL (ZESTRIL) 40 MG TAB 40 MILLIGRAM ORAL DAILY. FERROUS SULFATE (FEOSOL) 325 MG (65 MG IRON) TAB 325 MILLIGRAM ORAL DAILY. Hydrocodone/Acetaminophen (HYDROcodone/APAP 7.5/325) 7.5 MG-325 MG TAB 1 TABLET ORAL EVERY 4 HOURS NEEDED. as needed for PAIN Objective VS/I O Last Documented: Result Date Time Pulse Ox 93 02/03 1111 B/P 151/71 02/03 1111 B/P Mean 97.7 02/03 1111 Temp 36.8 02/03 1111 Pulse 88 02/03 1111 Resp 14 02/03 1111 O2 Delivery Room air 02/03 0343 FiO2 99 02/02 1454 O2 Flow Rate 10 02/02 1454 Results Results: labs reviewed, vital signs reviewed Free Text Obj Notes Free Text Obj Notes: Physical examination Patient is a pleasant person lying on the bed does not appear to be in distress is very sleepy and lethargic wakes up but goes back to sleep. HEENT pupils equal round reactive light and accommodating normocephalic/ atraumatic skull normal oral mucosa Neck supple no JVD Chest clear bilateral entry no wheeze or crackles CVS S1-S2 no murmur rubs or gallop Abdomen soft nontender bowel sounds positive Extremities no pedal edema pulses palpable [employer] alert oriented x2-3 wakes up and moves around no focal deficit grossly Psych examination normal mood Discharge Instructions PCP PCP follow-up: PCP: Latanya Bond MD Discharge to: Home/Self Care Additional Discharge Routines: [place] Follow-Up Diet: Regular Discharge management: greater than 30 mins Follow-up Appointments Consulting provider 1: Provider 1: Latanya Bond MD Specialty: Gynecology Consult follow up timeframe: In 1-2 weeks Quality: Discharge Current Medications Current medication review: I attest that the foregoing medication list in the medical record is true, accurate, and complete to the best of my knowledge. at 0808 RPT #: [id number] END OF REPORT [id number] 15:53:00 [facility] ([facility]) Hospitalist History Physical REPORT#:[id number] REPORT STATUS: Signed REPORT INITIALIZATION DATE:02/02/23 TIME:1553 PATIENT: DULCE MEZA UNIT #: [id number] ROOM/BED: [place] [address] : [birth year] AGE: 57 SEX: F ATTEND: Harjinder Hester MD ADM AUTHOR: Harjinder Hester MD REPT SERVICE DT/TIME: 02/02/23 1553 * ALL edits or amendments must be made on the electronic/computer document * History of Present Illness HPI Chief complaint: Status post vaginal reconstruction PCP: PCP: Latanya Bond MD HPI: This is 57-year-old lady who underwent vaginal reconstruction by AGENCY LEGAL COUNSEL for uterovaginal prolapse. Patient is seen in the PACU area still under the effect of anesthesia was not able to answer questions. History is mostly obtained from the AGENCY LEGAL COUNSEL physician and the notes History Past Medical Surgical Hx Additional medical history: Hypertension Peripheral vascular disease with recent stent in January 2023 Some questionable history of coronary artery disease but patient had denied any heart attack or any heart stents Dyslipidemia Additional surgical history: As mentioned above Tubal ligation Peripheral angiogram with stent of the right lower extremity Family History Additional family history: Reviewed not significant in this patient's care Social History Alcohol use: Denies EtOH use Drug use: Denies recreational drugs Smoking status for patients 13 years old or older: Former Smoker (quit 2months ago) Medication/Allergy-Vaccine Hx Medications: Home Medications: CLOPIDOGREL (PLAVIX) 75 MG PO DAILY ATORVASTATIN (LIPITOR) 80 MG PO BEDTIME buPROPion HCL (WELLBUTRIN) 75 MG PO BID LISINOPRIL (ZESTRIL) 40 MG PO DAILY FERROUS SULFATE (FEOSOL) 325 MG PO DAILY Hydrocodone/Acetaminophen (HYDROcodone/APAP 7.5/325) 1 TAB PO Q4H PRN PRN PAIN Allergies: Coded Allergies: No Known Allergies (01/29/23) Review of Systems Unable to obtain due to: as patient is under the effect of sedation OBJECTIVE VS/I O: Vital Signs Date Temp Pulse Resp B/P B/P Mean Pulse Ox FiO2 02/02 97.7-98.6 69-110 12-24 84-132/40-65 87.3 96-100 99 Last Documented: Result Date Time Pulse Ox 97 02/02 1549 B/P 131/65 02/02 1549 B/P Mean 87.3 02/02 1549 O2 Delivery Room air 02/02 1549 Temp 98.1 02/02 1549 Pulse 105 02/02 1549 Resp 14 02/02 1549 FiO2 99 02/02 1454 O2 Flow Rate 10 02/02 1454 Patient Weight and BMI Weight (kg): 45.455 BMI: 20.2 Medications: Active Meds + DC'd Last 24 Hrs Ferrous Sulfate (FERROUS SULFATE) 325 MG DAILY PO Lisinopril (ZESTRIL) 40 MG DAILY PO Cefazolin Sodium (KEFZOL) 1 GM Q8HR IV (UNV) Sterile Water (WATER FOR INJECTION) 10 ML Atorvastatin Calcium (LIPITOR) 80 MG BEDTIME PO Bupropion HCl (WELLBUTRIN) 75 MG BID PO Albuterol/Ipratropium (DUONEB) 3 ML RTQ6H PRN PRN NEB (UNV) Hydralazine HCl (APRESOLINE) 10 MG Q6H PRN PRN IV Hydrocodone Bitart/Acetaminophen (NORCO 10/325) 1 TAB Q6H PRN PRN PO Ondansetron HCl (ZOFRAN ODT) 4 MG Q4H PRN PRN PO Phenol (Chloraseptic [place]) 1 SPRAY QID PRN PRN MM (UNV) Tramadol HCl (ULTRAM) 50 MG Q6H PRN PRN PO (UNV) Acetaminophen (TYLENOL EXTRA STRENGTH) 1,000 MG Q6H PO (DC) Docusate Sodium (COLACE) 100 MG BID PO Hydrocodone Bitart/Acetaminophen (NORCO 5/325) 1 TAB PACU ONCE PRN PO Hydrocodone Bitart/Acetaminophen (NORCO 10/325) 1 TAB PACU ONCE PRN PO Hydromorphone HCl (DILAUDID) 0.5 MG PACU Q10MIN PRN PRN IV Insulin Human Lispro (HUMALOG) 0 PACU ONCE PRN SUBQ Labetalol HCl (TRANDATE) 5 MG PACU Q10MIN PRN PRN IV Lactated Ringer's (LACTATED RINGERS) 1,000 ML ASDIR IV Meperidine HCl (DEMEROL) 12.5 MG PACU ONCE PRN IV Ondansetron HCl (ZOFRAN) 4 MG PACU ONCE PRN IV Ondansetron HCl (ZOFRAN) 8 MG Q8H PRN PRN PO Ondansetron HCl (ZOFRAN) 8 MG Q8H PRN PRN IV Pregabalin (LYRICA) 75 MG BID PO Hydromorphone HCl (DILAUDID) 0 .STK-MED ONE .ROUTE (DC) Ephedrine Sulfate (ePHEDrine sulfate) 0 .STK-MED ONE .ROUTE (DC) Sevoflurane (ULTANE) 0 .STK-MED ONE .ROUTE (DC) Sevoflurane (ULTANE) 0 .STK-MED ONE .ROUTE (DC) Heparin Sodium (Porcine) (HEPARIN SODIUM) 0 .STK-MED ONE .ROUTE (DC) Heparin Sodium (Porcine) (HEPARIN SODIUM) 0 .STK-MED ONE .ROUTE (DC) Cefazolin Sodium (KEFZOL) 0 .STK-MED ONE .ROUTE (DC) Lidocaine/Epinephrine (Xylocaine 1%-Epi 1:100,000) 0 .STK-MED ONE .ROUTE (DC) Dexamethasone Sodium Phosphate (DECADRON) 0 .STK-MED ONE .ROUTE (DC) Fentanyl Citrate (SUBLIMAZE) 0 .STK-MED ONE .ROUTE (DC) Hydromorphone HCl (DILAUDID) 0 .STK-MED ONE .ROUTE (DC) Lidocaine HCl (XYLOCAINE) 0 .STK-MED ONE .ROUTE (DC) Ondansetron HCl (ZOFRAN) 0 .STK-MED ONE .ROUTE (DC) Propofol (DIPRIVAN) 20 ML .STK-MED ONE IV (DC) Rocuronium [place] (ZEMURON) 0 .STK-MED ONE .ROUTE (DC) Lidocaine HCl (XYLOCAINE) 0 .STK-MED ONE .ROUTE (DC) Sodium Chloride (0.9% Sodium Chloride) 250 ML .STK-MED ONE IV (DC) Vasopressin (PITRESSIN) 0 .STK-MED ONE .ROUTE (DC) Acetaminophen (TYLENOL EXTRA STRENGTH) 1,000 MG PREOP ONCE PO (DC) Celecoxib (CeleBREX) 200 MG PREOP ONCE PO (CKD) Gabapentin (NEURONTIN) 200 MG PREOP ONCE PO (CKD) Cefazolin Sodium (KEFZOL) 1 GM PREOP ASDIR IV (DC) Scopolamine HBr (TRANSDERM-SCOP) 1.5 MG PREOP ASDIR TRANSDERM (DC) Free Text PE Notes Free Text PE Notes: Physical examination Patient is a pleasant person lying on the bed does not appear to be in distress is very sleepy and lethargic wakes up but goes back to sleep. HEENT pupils equal round reactive light and accommodating normocephalic/ atraumatic skull normal oral mucosa Neck supple no JVD Chest clear bilateral entry no wheeze or crackles CVS S1-S2 no murmur rubs or gallop Abdomen soft nontender bowel sounds positive Extremities no pedal edema pulses palpable [employer] alert oriented x2-3 wakes up and moves around no focal deficit grossly Psych examination normal mood Diagnosis, Assessment Plan Free Text A P: Status post vaginal reconstruction for vaginal prolapse Continue postoperative care as per AGENCY LEGAL COUNSEL Wants to give antibiotics for 1 day will continue with cefazolin Holding anticoagulation and antiplatelets Monitor for bleeding Incentive spirometry Symptom management peripheral vascular disease status post recent intervention to the right leg. Patient had preop clearance as per AGENCY LEGAL COUNSEL it was okay to hold Plavix. Will need to resume once cleared by the surgeon Patient's pulses are palpable Hypertension Resume patient's lisinopril keep on as needed hydralazine Dyslipidemia Continue with statin Possible underlying mood disorder Resume home medication DVT prophylaxis with SCDs Patient is full code Discussed with patient PACU staff and AGENCY LEGAL COUNSEL Consultants: gynecology Quality: Gen Med Crit Care Current Medications Current medication review: I attest that the foregoing medication list in the medical record is true, accurate, and complete to the best of my knowledge. at 1602 RPT #: [id number] END OF REPORT [id number]:[id number] [facility] [id number] [place] [id number] PATIENT NAME: DULCE MEZA ADMIT DATE: 02/02/23 ACCOUNT NO: [id number] ROOM NO: L.PO8 AGE: 57 REPORT TYPE: OPERATIVE REPORT SEX: F ADMITTING PHYSICIAN: Harjinder Hester MD ATTENDING PHYSICIAN: Harjinder Hester MD OPERATION DATE: 02/02/2023 PREOPERATIVE DIAGNOSES: Stage III anterior wall prolapse, uterine prolapse stage II, posterior wall defect and stress urinary incontinence. POSTOPERATIVE DIAGNOSES: Stage III anterior wall prolapse, uterine prolapse stage II, posterior wall defect and stress urinary incontinence and a posterior enterocele. PROCEDURES PERFORMED: Anterior repair with biologic graft augmentation, bilateral anterior approach sacrospinous ligament fixation, cervical colpopexy, posterior wall repair with enterocele repair, perineorrhaphy and TVT-O (transobturator midurethral sling), cystoscopy. SURGEON: Latanya Bond MD SUSPECT ARTIST: Olive Cline and Crescencio Olivares. ANESTHESIA: General endotracheal. FINDINGS: POP-Q 0, +2, 0, 5, 10, 8, 0, +1, -3. On cystoscopy, both ureteric orifices were patent and there was no evidence of a foreign body either a stitch or mesh in the bladder, no trauma. COMPLICATIONS: No complications. ESTIMATED BLOOD LOSS: 100 mL. URINE OUTPUT: 200 mL. FLUIDS: LR 1200. CONDITION: The patient was stable during the entire case. DRAINS: Olson catheter and vaginal packing. IMPLANTS: [place] dermis 6 x 8 cm graft and TVT-O. WOUND CLASS: Clean contaminated. APPROACH: Vaginal. PATIENT NAME: DULCE MEZA COUNTS: Correct. DISPOSITION: To med/surg, transferred to the medical service. BRIEF HISTORY AND PHYSICAL: The patient is a 57-year-old female who presented with stage III prolapse, had vasculopathy and a lower extremity stent placed followed by a cardiac stent, also has high cholesterol, smoker. She was managed with a pessary for her symptomatic prolapse; however, this has not been working well and it has been difficult for her to be compliant with followup and pessary care, wanted to proceed with surgical management after medical clearance was obtained from her project geophysicist and her primary care. We consented her for this procedure. I discussed with her the options of uterine preservation with vaginal reconstruction or vaginal closure procedure if that is feasible after exam under anesthesia. We discussed extensively about the possibility of the vaginal closure leading to permanent inability to have vaginal intercourse or any form of vaginal penetration. The patient understood this, she was consented, her daughter was also present at the bedside in the preoperative area for this decision; however, they understood that vaginal reconstruction alone would be done if that is the only feasible procedure. PROCEDURE IN DETAIL: She was taken back to OR, placed in supine fashion on operating table. After general anesthesia was given, she was placed in dorsal lithotomy position using Cj stirrups. Lower abdomen, vulva, vagina, and perineum were prepped and draped in sterile fashion with Betadine. Speculum placed to expose the cervix. Anterior lip of the cervix grasped with two Allis clamps. Then, the POP-Q was assessed and is as dictated above. A colpocleisis would not be feasible as her posterior defect was not significant and would not match the anterior defect for me to be able to de-epithelialize and closed the anterior and posterior bardales, so proceeded with vaginal reconstruction plan. Midline anterior wall was marked with a marking pen, injected with dilute vasopressin and half 20 units of vasopressin mixed with 60 mL of normal saline, 20 mL was injected in the anterior wall. Once this was done. Cervix was identified. A line was drawn above the level of the cervix where I would want to expose the cervical tissue for the cervicopexy. A #15 blade was used to make an incision, the edges were undermined. The bladder was dissected superiorly and posteriorly all the way from the urethrovesical junction to the cervix. The bladder was reflected off the cervix and laterally slightly proximal to the pericervical ring, paravaginal space was opened up and this was dissected to the ischial spine, the sacrospinous ligament was dissected and the rectum was swept medially clearing up the ligament towards the coccyx in a medial and posterior fashion. Then, anteriorly and laterally to the ischial spine, the white line was cleared up in order for me to place a suture to hold the lateral aspect in the mid vagina for the dermis graft. On the opposite side, similar dissection was performed and dissection was carried along to the ischial spine, sacrospinous ligament was cleaned up. Then, paravaginal spaces were dissected and white line cleared up. Anteriorly, the bladder dissection was taken to the level of the UVJ and dissected down. A Capio device was taken and Prolene suture placed on the right sacrospinous and PDS suture on the right white line, the sacrospinous suture on the left side, PATIENT NAME: DULCE MEZA accidentally the PDS suture was used instead of Prolene, which was realized much later, so I had to redo this stitch twice just to make sure that the Prolene permanent suture was used instead of nonpermanent. The suture passed through the vaginal wall. The vaginal wall was thin and the prolapse significant, once this was observed, the suture was cut and then replaced, no problems after this. The biologic graft was fashioned into 8 x 6 x 5 cm graft into a trapezoid. The proximal and distal midlines were attached with 2-0 PDS to the fascia and the cervix respectively. Then, sacrospinous suture was attached to the lateral aspect of the longer arm of the graft and with a anil stitch secured to the graft and this was used to pull back to tie on the sacrospinous ligament. Once both the sacrospinous sutures were tied down, then the lateral bites on the white line were tied to the graft. Once the entire reconstruction was done, there was excellent lift and reduction of prolapse in the anterior compartment as well as apical, the vaginal epithelium was slightly trimmed and closed with the help of continuous running 2-0 Vicryl suture. 1 cm below the perineum, point in the midline was made. Then, midline dissection was carried on by opening with a #15 blade after injecting with dilute vasopressin 15 to 20 mL in this area all the way to the level of the posterior cervix. Then, the entire area was dissected. An enterocele was dissected, the rectovaginal septum was dissected. Posterior enterocele repair plication with continuous running 3-0 Monocryl was used. Once the pursestring was placed and was reduced. Then, I planned on plicating the posterior vaginal and rectovaginal septum closing the defect of the apex, the rectovaginal septum that was dissected down freely was nicely reattach to the paracervical ring posteriorly with the help of a continuous running PDS suture. Then, [id number] plication was conducted with 2-0 PDS as well and all the way down to the level of the perineum slightly above it. Then, knot tied inside the vagina, 2-0 Vicryl was taken for perineal reconstruction. Once this was done, in two layer fashion from [id number], there was excellent closure and support and there was no need for levatorplasty, 3-0 Vicryl was used to continuously run the subcutaneous and subcuticular tissues to close this incision. Once this was done, the rectal exam was performed. No evidence of any trauma to the rectum here or at the sacrospinous ____. Midurethral area was picked up with two Allis clamps and injected with 10 mL of dilute vasopressin and a midline incision made. Dissection carried to the ipsilateral obturator space and once the membrane was perforated, tract was expanded with Metzenbaum scissors. The left side was slightly harder and the angled slightly more superior but adductor longus tendon was avoided while passing the spike. The mesh and the graft were held with Kellys as the plastic dilators were cut ____ mesh sling, the urethra was tensioned appropriately with the Metzenbaum scissors in between the sling and the urethra. Once the plastic sheaths were pulled out, mesh was cut flushed with the skin. The vaginal epithelium was closed after irrigation with antibiotic solution and the mesh with a continuous running 3-0 Vicryl. Then, groin incisions were closed with Dermabond. The Olson was removed and cystoscopy was performed. The urethra and bladder were safe. No trauma or foreign body ____. Olson was replaced. Packing was placed. The patient was recovered from anesthesia and taken to PACU in stable condition. Instrument and sponge counts x3 were correct at the end of the case. The patient's daughter was debriefed about her procedure and the hospitalist. PATIENT NAME: AHSAN MEZAA Dictated By: Latanya Bond MD Date Dictated: 02/02/2023 15:31:30 Date Transcribed: 02/02/2023 20:54:10 NILA/PRIMITIVO/DELLA Receipt ID: [id number] Authenticated by Latanya Bond MD On 03/30/2023 05:24:07 PM at 0524 PATIENT NAME: AHSAN MEZAA 15:15:00 [facility] ([facility]) Brief Op Note REPORT#:[id number] REPORT STATUS: Signed REPORT INITIALIZATION DATE:02/02/23 TIME:1514 PATIENT: DULCE MEZA UNIT #: [id number] ROOM/BED: [place] [id number] : 63 AGE: 57 SEX: F ATTEND: Harjinder Hester MD ADM AUTHOR: Latanya Bond MD REPT SERVICE DT/TIME: 02/02/231514 * ALL edits or amendments must be made on the electronic/computer document * Op/Inv Proc Note - Brief Pre-procedure diagnosis: Stage 3 anteriro wall prolapse, uterine prolapse stage 2, posterior wall defect, ENRIQUETA Post-procedure diagnosis: same as pre procedure dx, posterior enterocele Procedures performed: Anterrior repair with bio;logical graft augmentation, bilateral anteriro approach SSLF cervico-colpopexy, posterior wall an enterocele repairs, perineorrhaphy, TVT-O cystoscopy Primary Surgeon: ronda Applied Technologist(s): crescencio quigley Anesthesia: general anesthesia Findings: 0/+2/0/5/thin/8/0/+1/-3, cysto patent UOs and no foreign body or mesh in the bladder Complications: none Estimated blood loss in ml's: 100 Specimens removed/altered: none Drain(s): Olson Catheter Placed Tube(s): none Implant(s): axis dermis 6x8 graft, TVT-O Fluids: 1200 Urine output: 200 Approach: vaginal Wound class: clean/contaminated Disposition: MEDSURG Counts: Sponge count: correct Instrument count: correct Needle count: incorrect at 1519 RPT #: [id number] END OF REPORT [id number]:27:[id number] [facility] [address] [place] [address] PATIENT NAME: DULCE MEZA ADMIT DATE: 02/02/23 ACCOUNT NO: [id number] ROOM NO: PO8 AGE: 57 REPORT TYPE: eELECTROCARDIOGRAM SEX: F ADMITTING PHYSICIAN: Harjinder Hester MD ATTENDING PHYSICIAN: Harjinder Hester MD Order: [id number] Test Reason : PRESURGERY Test Date/Time Stamp: ThuJan 29 2023 10:27:40 Blood Pressure : / mmHG Vent. Rate : 075 BPM Atrial Rate : 075 BPM P-R Int : 106 ms QRS Dur : 088 ms QT Int : 390 ms P-R-T Axes : 066 062 065 degrees QTc Int : 435 ms Sinus rhythm with short ID Otherwise normal ECG No previous ECGs available Confirmed by LUIS TO (Ben) on 02/11/2023 3:02:01 PM Referred By: Latanya Bond Confirmed by:LUIS TO at 1502 PATIENT NAME: DULCE MEZA
[2024-11-26 21:23] LABS: Absolute Lymphocytes (CBC) 2.4 K/uL (0.7-4.9); Hematocrit 22.5 % (36.0-45.0); Hemoglobin 6.7 g/dL (12.0-15.0); MCH 21.1 pg (27.0-35.0); MCHC 29.9 g/dL (32.0-36.0); MCV 70.5 fL (80-100); MPV 6.2 fL (7.6-11.3); Nucleated RBC Absolute Count 0.0 (0-0); Nucleated Red Blood Cells % 0.0 % (0-0); RBC Red Blood Cell Count 3.20 M/uL (3.86-4.86); White Blood Count 10.10 thou/uL (4.3-10.9)
[2024-11-26 21:31] LABS: PT Prothrombin Time 11.3 SECONDS (10-13.0); Protime INR 1.0
[2024-11-26] MEDS ORDERED: NA CHLORIDE 0.9% 500 ML ONE (21:39)
[2024-11-26 21:42] LABS: ALT/SGPT 17.0 U/L (13-56); AST/SGOT 16.0 U/L (15-37); Albumin 3.6 g/dL (3.4-5.0); Albumin/Globulin Ratio 1.1 (1.1-1.8); Alkaline Phosphatase 97.0 U/L (45-117); Anion Gap 9.8 mEq/L (5.0-15.0); BUN Blood Urea Nitrogen 11.0 mg/dL (7-18); Bilirubin Indirect, Calculated 0.4 mg/dL (0.2-0.8); Globulin 3.4 g/dL (2.3-3.5); Glucose Level 107.0 mg/dL (74-106); Magnesium 2.0 mg/dL (1.6-2.4); NT PRO-BNP 293.0 pg/mL (<125); Potassium 3.8 mEq/L (3.5-5.1); Troponin High Sensitivity 5.4 pg/mL (<58.9)
[2024-11-26] MEDS ORDERED: NA CHLORIDE 0.9% 250 ML ONE (23:24)
[2024-11-26 23:54] LABS: RBC Red Blood Cell Count 2.91 M/uL (3.86-4.86)
[2024-11-26 23:55] LABS: Percent Reticulocyte Count 0.2 % (0.4-2.05)
--- NOTE | 2024-11-26 23:58 | RAD REPORT ---
EXAMINATION: ONE VIEW CHEST XR CLINICAL INDICATION: Female, 58 years old.,COUGH TECHNIQUE: Frontal chest projection is submitted. Examination is limited by patient positioning and t echnique. COMPARISON: 08/05/2022 FINDINGS: The lungs are well inflated and clear. No pneumothorax or sizable effusion. The heart is normal in s ize. Mediastinal contours are unremarkable. IMPRESSION: No acute intrathoracic abnormalities.
[2024-11-27] MEDS ORDERED: PANTOPRAZOLE 40 MG INJ ONE (00:04)
--- NOTE | 2024-11-27 00:40 | EDPHYS ---
Physician Documentation [facility] Name: Mora Villa Age: 58 yrs Sex: Female : 1965 Arrival Date: 11/26/2024 Time: 20:33 Bed 3 Private MD: ED Physician Oren Sen HPI: 11/26 23:34 This 58 yrs old Female presents to ER via Ambulatory with complaints of stephen Abnormal Lab Results. 23:34 sent for hgb 6.7. Onset: The symptoms/episode began/occurred at an unknown time. stephen Severity of symptoms: At their worst the symptoms were moderate in the emergency department the symptoms are unchanged. It is unknown whether or not the patient has had similar symptoms in the past. Historical: - Allergies: 20:50 No Known Allergies; dd2 - PMHx: 20:50 Hyperlipidemia; Hypertension; Osteoporosis; NEUROPATHY; PAD; dd2 - PSHx: 20:50 Bladder; section; tubal; vascular surgery on left leg; dd2 - Immunization history:: Adult Immunizations unknown. - Infectious Disease History:: Denies. - Social history:: Smoking status: Patient denies any tobacco usage or history of. ROS: 23:34 Constitutional: Negative for fever, chills, and weight loss, Eyes: Negative for injury, stephen pain, redness, and discharge, ENT: Negative for injury, pain, and discharge, Neck: Negative for injury, pain, and swelling, Cardiovascular: Negative for chest pain, palpitations, and edema, Respiratory: Negative for shortness of breath, cough, wheezing, and pleuritic chest pain, Abdomen/GI: Negative for abdominal pain, nausea, vomiting, diarrhea, and constipation, Back: Negative for injury and pain, : Negative for injury, bleeding, discharge, and swelling, MS/Extremity: Negative for injury and deformity, Skin: Negative for injury, rash, and discoloration, Psych: Negative for depression, anxiety, suicide ideation, homicidal ideation, and hallucinations, Allergy/Immunology: Negative for hives, rash, and allergies, Endocrine: Negative for neck swelling, polydipsia, polyuria, polyphagia, and marked weight changes, Hematologic/Lymphatic: Negative for swollen nodes, abnormal bleeding, and unusual bruising, 23:34 Neuro: Positive for weakness, Exam: 23:34 Constitutional: This is a well developed, well nourished patient who is awake, alert, stephen and in no acute distress. Head/Face: Normocephalic, atraumatic. ENT: Nares patent. No nasal discharge, no septal abnormalities noted. Tympanic membranes are normal and external auditory canals are clear. Oropharynx with no redness, swelling, or masses, exudates, or evidence of obstruction, uvula midline. Mucous membranes moist. Neck: Trachea midline, no thyromegaly or masses palpated, and no cervical lymphadenopathy. Supple, full range of motion without nuchal rigidity, or vertebral point tenderness. No Meningismus. Chest/axilla: Normal chest wall appearance and motion. Nontender with no deformity. No lesions are appreciated. Cardiovascular: Regular rate and rhythm with a normal S1 and S2. No gallops, murmurs, or rubs. Normal PMI, no JVD. No pulse deficits. Respiratory: Lungs have equal breath sounds bilaterally, clear to auscultation and percussion. No rales, rhonchi or wheezes noted. No increased work of breathing, no retractions or nasal flaring. Abdomen/GI: Soft, non-tender, with normal bowel sounds. No distension or tympany. No guarding or rebound. No evidence of tenderness throughout. Back: No spinal tenderness. No costovertebral tenderness. Full range of motion. Female : Normal external genitalia. Skin: Warm, dry with normal turgor. Normal color with no rashes, no lesions, and no evidence of cellulitis. MS/ Extremity: Pulses equal, no cyanosis. Neurovascular intact. Full, normal range of motion., bilateral aka Neuro: Awake and alert, GCS 15, oriented to person, place, time, and situation. Cranial nerves II-XII grossly intact. Motor strength 5/5 in all extremities. Sensory grossly intact. Cerebellar exam normal. Normal gait. Psych: Awake, alert, with orientation to person, place and time. Behavior, mood, and affect are within normal limits. 23:34 Eyes: Periorbital structures: appear normal, no acute changes, Pupils: no acute changes, equal, round, and reactive to light and accomodation, Extraocular movements: intact throughout, Conjunctiva: pale, Corneas: are normal, 23:35 Abdomen/GI: Inspection: abdomen appears normal, Bowel sounds: normal, Palpation: [facility] abdomen is soft and non-tender, Rectal exam: is unremarkable, rectal tone normal, Stool: guaiac negative, hemorrhoid(s), are not appreciated, mass, is not appreciated, swelling, is not appreciated, tenderness, is not appreciated, fecal impaction, is not appreciated, Liver: no appreciated palpable abnormalities, Hernia: not appreciated, 23:41 ECG was reviewed by the Attending Physician. [facility] Vital Signs: 20:50 BP 116 / 57; Pulse 84; Resp 16; Temp 98.3; Pulse Ox 98% ; Weight 45.81 kg; dd2 21:19 BP 111 / 53; Pulse 56; Resp 18; Pulse Ox 97% on R/A; kj2 22:20 BP 101 / 53; Pulse 78; Resp 20; Pulse Ox 100% on R/A; kj2 23:35 BP 124 / 63; Pulse 78; Resp 18; Temp 98.4; Pulse Ox 100% ; kj2 11/27 00:05 vc1 04:56 BP 127 / 84; Pulse 74; Resp 20; Temp 98.2; Pulse Ox 100% ; vc1 05:42 BP 142 / 69; Pulse 71; Resp 18; Pulse Ox 99% ; cp4 00:05 See blood transfusion form for vital signs vc1 MDM: 11/26 20:46 Medical Screening Exam initiated [facility] 23:36 Differential Diagnosis altered mental status, sepsis, flu. Data reviewed: vital signs, [facility] nurses notes, lab test result(s), EKG, radiologic studies, CT scan, plain films. Consideration of Admission/Observation Escalation of care including admission/observation considered. I considered the following discharge prescriptions or medication management in the emergency department Medications were administered in the Emergency Department. See MAR. Independent interpretation of the following test(s) in the Emergency Department EKG: See my EKG interpretation above. Historians other than the Patient: Daughter/Son: daughter. Care significantly affected by the following chronic conditions: Hypertension, lipidema, htn , osteoporosis, neuropathy, pad. Counseling: I had a detailed discussion with the patient and/or guardian regarding the historical points, exam findings, and any diagnostic results supporting the discharge/admit diagnosis, lab results, radiology results, the need for outpatient follow up, for definitive care, a family practitioner, a marketing project manager. 11/26 20:46 Order name: Basic Metabolic Panel; Complete Time: 23:12 [facility] 11/26 20:46 Order name: CBC with Diff; Complete Time: 23:12 [facility] 11/26 20:46 Order name: LFT's; Complete Time: 23:12 [facility] 11/26 20:46 Order name: Magnesium; Complete Time: 23:12 [facility] 11/26 20:46 Order name: NT PRO-BNP; Complete Time: 23:12 [facility] 11/26 20:46 Order name: PT-INR; Complete Time: 23:12 [facility] 11/26 20:46 Order name: Troponin HS; Complete Time: 23:12 [facility] 11/26 21:10 Order name: Type And Screen [facility] 11/26 21:44 Order name: Packed RBC Leukored [facility] 11/26 22:13 Order name: ABO/RH no charge; Complete Time: 23:12 [facility] 11/26 23:25 Order name: UA Rfx Karson Cult if indicated [facility] 11/26 23:27 Order name: B12 [facility] 11/26 23:27 Order name: Retic Count; Complete Time: 00:39 [facility] 11/26 23:27 Order name: Ferritin [facility] 11/26 23:27 Order name: TIBC [facility] 11/27 01:20 Order name: Urine Culture [facility] 11/26 20:46 Order name: XRAY Chest (1 view); Complete Time: 00:39 [facility] 11/26 23:24 Order name: CT Abd/Pelvis - IV Contrast Only [facility] 11/26 20:46 Order name: Cardiac monitoring; Complete Time: 21:27 [facility] 11/26 20:46 Order name: EKG - Nurse/Tech; Complete Time: 21:47 [facility] 11/26 20:46 Order name: IV Saline Lock; Complete Time: 21:27 [facility] 11/26 20:46 Order name: Labs collected and sent; Complete Time: 21:27 [facility] 11/26 20:46 Order name: O2 Per Protocol; Complete Time: 21:27 [facility] 11/26 20:46 Order name: O2 Sat Monitoring; Complete Time: 21:27 [facility] 11/26 21:10 Order name: Transfuse; Complete Time: 00:02 [facility] EC:41 Rate is 76 beats/min. Rhythm is regular. QRS [place] is Normal. SC interval is shortened stephen at 104 msec. QRS interval is normal. QT interval is normal. No Q waves. T waves are Normal. No ST changes noted. Clinical impression: NSR w/ Non-specific ST/T Changes and No evidence of ischemia. Interpreted by me. Reviewed by me. Administered Medications: 21:47 Drug: NS 0.9% IV 500 ml 500 ml IV at 1 bolus once; to be given as a bolus over 30 kj2 minutes Volume: 500 ml; Route: IV; Rate: 1 bolus; Site: right antecubital; 11/27 00:05 Follow up: IV Status: Completed infusion; IV Intake: 500ml vc1 00:08 Drug: Pantoprazole IVP 40 mg IVP once Route: IVP; Site: right antecubital; kj2 00:15 Follow up: Response: No adverse reaction vc1 02:21 Drug: Rocephin IV 1 grams IV at per protocol once; Given slow IV push per pharmacy cp4 instructions Route: IV; Rate: per protocol; Site: right antecubital; 02:21 Follow up: Response: No adverse reaction; IV Status: Completed infusion cp4 02:21 Drug: Ciprofloxacin PO 500 mg PO once Route: PO; cp4 03:00 Follow up: Response: No adverse reaction; Marked relief of symptoms vc1 02:51 Drug: Tessalon Perle PO 200 mg PO once Route: PO; vc1 03:00 Follow up: Response: No adverse reaction; Marked relief of symptoms vc1 Disposition Summary: 11/27/24 00:39 Discharge Ordered Notes: Location: Home stephen Problem: new stephen Symptoms: have improved stephen Condition: Stable stephen Diagnosis - Iron deficiency anemia secondary to blood loss (chronic) stephen - Iron deficiency anemia, unspecified stephen - UTI/ Urinary tract infection, site not specified stephen Followup: stephen - With: Private Physician - When: 2 - 3 days - Reason: Recheck today's complaints, Continuance of care, Re-evaluation by your physician Followup: stephen - With: Esther Goldberg MD - When: 2 - 3 days - Reason: Recheck today's complaints, Re-evaluation by your physician Discharge Instructions: - Discharge Summary Sheet stephen - Iron Deficiency Anemia, Adult stephen - Anemia stephen - Blood Transfusion, Adult stephen - Iron-Rich Diet stephen - Urinary Tract Infection, Adult stephen - Urinary Tract Infection, Adult, [id number] stephen - Blood Transfusion, Adult, [id number] stephen - Iron Deficiency Anemia, Adult, [id number] stephen - Blood Transfusion, Adult, Care After stephen Forms: - Medication Reconciliation Form stephen - Antibiotic Education stephen - Prescription Opioid Use stephen - Patient Portal Instructions stephen - Leadership Thank You Letter [facility] Prescriptions: - Cipro 250 mg Oral tablet - take 1 tablet ORAL route every 12 hours; 14 tablet; Refills: 0, Product [facility] Selection Permitted - Ferrous Sulfate 325 mg (65 mg Iron) Oral Tablet - take 1 tablet ORAL route every 8 hours; 90 tablet; Refills: 0, Product [facility] Selection Permitted - Protonix 40 mg Oral Tablet - take 1 tablet ORAL route once daily; 30 tablet; Refills: 0, Product Selection stephen Permitted Signatures: Dispatcher [employer] EDMS Oren Sen MD MD cha Calcote, Vanessa RN RN vc1 Anna Posey cp4 Celine La RN RN kj2 NIA CACERES RN RN dd2 Corrections: (The following items were deleted from the chart) 11/26 20:46 20:46 Chest Single View+RAD.RAD.BRZ ordered. EDMS EDMS 21:10 21:10 TYPE AND SCREEN+BB.LAB.BRZ ordered. EDMS EDMS 21:10 21:10 PACKED RBC LEUKORED+BB.LAB.BRZ ordered. EDMS EDMS 21:44 21:13 ABO/RH typing ordered. EDMS EDMS 21:44 21:13 Antibody Screen ordered. EDMS EDMS 23:27 23:27 VITAMIN B12+C.LAB.BRZ ordered. EDMS EDMS 23:27 23:27 RETIC COUNT+H.LAB.BRZ ordered. EDMS EDMS 23:27 23:27 FERRITIN+C.LAB.BRZ ordered. EDMS EDMS 23:27 23:27 FERRITIN+C.LAB.BRZ ordered. EDMS EDMS 23:27 23:27 TRANSFERRIN SAT/IRON BINDING+C.LAB.BRZ ordered. EDMS EDMS
--- NOTE | 2024-11-27 00:40 | ER ---
Nurse's Notes [facility] Name: Mora Villa Age: 58 yrs Sex: Female : 1965 Arrival Date: 11/26/2024 Time: 20:33 Bed 3 Private MD: Diagnosis: Iron deficiency anemia secondary to blood loss (chronic);Iron deficiency anemia, unspecified;UTI/ Urinary tract infection, site not specified Presentation: 11/26 20:48 Chief complaint: Patient states: RECEIVED A CALL FROM PCP TODAY TO COME TO ER FOR HGB dd2 6.9. PT DENIES WEAKNESS, BLEEDING. Coronavirus screen: At this time, the client does not indicate any symptoms associated with coronavirus-19. Ebola Screen: No symptoms or risks identified at this time. Risk Assessment: Do you want to hurt yourself or someone else? Patient reports no desire to harm self or others. Onset of symptoms was November 26, 2024. 20:48 Method Of Arrival: Ambulatory dd2 20:48 Acuity: MIAH 3 dd2 20:50 Initial Sepsis Screen: Does the patient meet any 2 criteria? No. Patient's initial dd2 sepsis screen is negative. Does the patient have a suspected source of infection? No. Patient's initial sepsis screen is negative. Triage Assessment: 20:50 General: Appears in no apparent distress. comfortable, Behavior is calm, cooperative, dd2 appropriate for age. Pain: Denies pain. 20:50 Respiratory: Reports cough that is. dd2 Historical: - Allergies: 20:50 No Known Allergies; dd2 - PMHx: 20:50 Hyperlipidemia; Hypertension; Osteoporosis; NEUROPATHY; PAD; dd2 - PSHx: 20:50 Bladder; section; tubal; vascular surgery on left leg; dd2 - Immunization history:: Adult Immunizations unknown. - Infectious Disease History:: Denies. - Social history:: Smoking status: Patient denies any tobacco usage or history of. Screenin:20 [facility] ED Fall Risk Assessment (Adult) History of falling in the last 3 months, kj2 including since admission No falls in past 3 months (0 pts) Confusion or Disorientation No (0 pts) Intoxicated or Sedated No (0 pts) Impaired Gait No (0 pts) Mobility Assist Device Used No (0 pt) Altered Elimination No (0 pt) Score/Fall Risk Level 0 - 2 = Low Risk Maintained a safe environment, Hourly rounding (assess needs \T\ fall precautionary measures) done. Abuse screen: Denies threats or abuse. Denies injuries from another. Nutritional screening: No deficits noted. Tuberculosis screening: No symptoms or risk factors identified. Assessment: 21:00 General: Appears in no apparent distress. Behavior is calm, cooperative. Pain: Denies kj2 pain. Neuro: Level of Consciousness is awake, alert, obeys commands, Oriented to person, place, time, situation. Cardiovascular: Patient's skin is warm and dry. Respiratory: Airway is patent Respiratory effort is unlabored. GI: No signs and/or symptoms were reported involving the gastrointestinal system. : No signs and/or symptoms were reported regarding the genitourinary system. 21:47 Reassessment: Patient appears in no apparent distress at this time. Patient and/or kj2 family updated on plan of care and expected duration. Pain level reassessed. Patient is alert, oriented x 3, equal unlabored respirations, skin warm/dry/pink. 23:35 Reassessment: blood transfusion started. kj2 11/27 00:47 Reassessment: Patient completing blood transfusion. Dispo pending. cp4 02:00 Reassessment: Patient appears in no apparent distress at this time. No changes from vc1 previously documented assessment. Patient and/or family updated on plan of care and expected duration. Pain level reassessed. Patient is alert, oriented x 3, equal unlabored respirations, skin warm/dry/pink. 03:00 Reassessment: Patient appears in no apparent distress at this time. No changes from vc1 previously documented assessment. Patient and/or family updated on plan of care and expected duration. Pain level reassessed. Patient is alert, oriented x 3, equal unlabored respirations, skin warm/dry/pink. 04:00 Reassessment: Patient appears in no apparent distress at this time. No changes from vc1 previously documented assessment. Patient and/or family updated on plan of care and expected duration. Pain level reassessed. Patient is alert, oriented x 3, equal unlabored respirations, skin warm/dry/pink. 04:50 Reassessment: Patient appears in no apparent distress at this time. No changes from vc1 previously documented assessment. Patient and/or family updated on plan of care and expected duration. Pain level reassessed. Patient is alert, oriented x 3, equal unlabored respirations, skin warm/dry/pink. Vital Signs: 11/26 20:50 BP 116 / 57; Pulse 84; Resp 16; Temp 98.3; Pulse Ox 98% ; Weight 45.81 kg; dd2 21:19 BP 111 / 53; Pulse 56; Resp 18; Pulse Ox 97% on R/A; kj2 22:20 BP 101 / 53; Pulse 78; Resp 20; Pulse Ox 100% on R/A; kj2 23:35 BP 124 / 63; Pulse 78; Resp 18; Temp 98.4; Pulse Ox 100% ; kj2 11/27 00:05 vc1 04:56 BP 127 / 84; Pulse 74; Resp 20; Temp 98.2; Pulse Ox 100% ; vc1 05:42 BP 142 / 69; Pulse 71; Resp 18; Pulse Ox 99% ; cp4 00:05 See blood transfusion form for vital signs vc1 ED Course: 11/26 20:37 Patient arrived in ED. mr 20:46 Oren Sen MD is Attending Physician. stephen 20:50 Triage completed. dd2 20:54 Arm band placed on right wrist. dd2 21:00 Inserted saline lock: 22 gauge in right antecubital area, using aseptic technique. kj2 Blood collected. Flushed with 10 mL NS. 21:01 Celine La RN is Primary Nurse. kj2 21:20 Patient has correct armband on for positive identification. Call light in reach. Side kj2 rails up X 1. Adult w/ patient. Provided Education on: call light. 21:52 EKG done, by ED staff, reviewed by Oren Sen MD. oe 21:57 XRAY Chest (1 view) In Process Unspecified. EDMS 22:36 Inserted saline lock: 22 gauge in left wrist, using aseptic technique. Flushed with 10 oe mL NS. 11/27 00:05 Report received from RANDI Berger. vc1 00:39 Esther Goldberg MD is Referral Physician. stephen 02:26 CT Abd/Pelvis - IV Contrast Only In Process Unspecified. EDMS 02:30 hot tea given. vc1 05:43 No provider procedures requiring assistance completed. intact, bleeding controlled, No cp4 redness/swelling at site. Pressure dressing applied. Administered Medications: 11/26 21:47 Drug: NS 0.9% IV 500 ml 500 ml IV at 1 bolus once; to be given as a bolus over 30 kj2 minutes Volume: 500 ml; Route: IV; Rate: 1 bolus; Site: right antecubital; 11/27 00:05 Follow up: IV Status: Completed infusion; IV Intake: 500ml vc1 00:08 Drug: Pantoprazole IVP 40 mg IVP once Route: IVP; Site: right antecubital; kj2 00:15 Follow up: Response: No adverse reaction vc1 02:21 Drug: Rocephin IV 1 grams IV at per protocol once; Given slow IV push per pharmacy cp4 instructions Route: IV; Rate: per protocol; Site: right antecubital; 02:21 Follow up: Response: No adverse reaction; IV Status: Completed infusion cp4 02:21 Drug: Ciprofloxacin PO 500 mg PO once Route: PO; cp4 03:00 Follow up: Response: No adverse reaction; Marked relief of symptoms vc1 02:51 Drug: Tessalon Perle PO 200 mg PO once Route: PO; vc1 03:00 Follow up: Response: No adverse reaction; Marked relief of symptoms vc1 Medication: 01:45 VIS not applicable for this client. vc1 Intake: 00:05 IV: 500ml; Total: 500ml. vc1 Outcome: 00:39 Discharge ordered by . stephen 05:43 Discharged to home ambulatory, cp4 05:43 Condition: stable 05:43 Discharge instructions given to patient, Instructed on discharge instructions, follow up and referral plans. medication usage, Demonstrated understanding of instructions, follow-up care, medications, Prescriptions given X 3, 05:44 Patient left the ED. cp4 Signatures: Dispatcher [employer] EDVA Oren Sen MD MD cha Rivera, Mary, Reg Reg mr GilbertoReuben Vanessa, RN RN vc1 Anna Posey cp4 Celine La RN RN kj2 NIA CACERES RN RN dd2 Corrections: (The following items were deleted from the chart) 11/26 20:54 20:50 General: Appears in no apparent distress. comfortable, Behavior is calm, dd2 cooperative, appropriate for age, dd2
[2024-11-27 00:54] LABS: Ferritin 4.3 ng/mL (8-252)
[2024-11-27 00:55] LABS: Transferrin 280.0 mg/dL (200-360)
[2024-11-27 01:09] LABS: Iron 15.0 ug/dL (50-170)
[2024-11-27 01:16] LABS: Sqamous Epithelial <5 /HPF (None Seen); Urine Culture Reflex Order REFLEXED; Urine Microscopic Reflex YN ORDER UMIC
[2024-11-27] MEDS ORDERED: CEFTRIAXONE 1000 MG/VIAL ONE (02:17)
[2024-11-27] MEDS ORDERED: CIPROFLOXACIN HCL 500 MG TAB ONE (02:17)
[2024-11-27] MEDS ORDERED: BENZONATATE 100 MG CAP PO ONE (02:48)
--- NOTE | 2024-11-27 06:21 | RAD REPORT ---
CT ABDOMEN PELVIS WITH IV CONTRAST CLINICAL INDICATION: Abdominal pain COMPARISON: CT abdomen pelvis 10/04/2022. CTA pelvis 07/06/2023 TECHNIQUE: CT images of the abdomen and pelvis obtained following administration of intravenous contr ast. Multiplanar reformats were provided. Dose-optimization techniques such as automated exposure control, iterative reconstruction, and mA and/or kV adjustment for patient size was utilized for this examination. FINDINGS: LOWER CHEST: Unremarkable. LIVER: Unremarkable. BILIARY: Unremarkable. PANCREAS: Unremarkable. SPLEEN: Unremarkable. ADRENALS: Unremarkable. KIDNEYS/URETERS: Stable atrophic right kidney without hydroureteronephrosis or suspicious lesion. Ful lness of left renal collecting system and ureter is similar to previous exam. No renal calculi. Stable focal thinning at upper pole of left kidney may represent sequela of remote insult. STOMACH: Unremarkable. BOWEL: Colonic diverticulosis without acute diverticulitis. Moderate colonic stool burden. Mild diffu se prominence of small bowel without focal obstruction, likely ileus. No focal bowel wall thickening or dilatation. No bowel obstruction. APPENDIX: Normal. PERITONEUM/RETROPERITONEUM: Unremarkable. LYMPH NODES: Unremarkable. URINARY BLADDER: Unremarkable. REPRODUCTIVE: Unremarkable. VASCULATURE: Diffuse arthrosclerotic calcification of abdominal aorta without aneurysm. Status post p revious endovascular stenting of bilateral common and external iliac arteries which appear grossly patent. ABDOMINAL/PELVIC WALL: Diastasis of rectus sheath with small fat containing periumbilical hernia. BONES: Unremarkable. IMPRESSION: 1. No acute inflammatory changes in the abdomen and pelvis. 2. Mild diffuse prominence of small bowel without focal obstruction, likely ileus. 3. Colonic diverticulosis without acute diverticulitis. Electronically signed by: Tamara Koo MD 11/27/2024 06:05 AM [facility] Due to temporary technical issues with the PACS/SidelineSwap reporting system, reports are being surjit d by the in-house radiologist without review as a courtesy to ensure prompt reporting the interpreting radiologist is fully responsible for the content of the report. Transcribed Date/Time: 11/27/2024 6:21 AM
[2024-11-27 10:29] VITALS: TEMP 98.2
[2024-11-27 10:31] VITALS: BP 142/69; O2SAT 99
== END 2024-11-27 05:44 | disposition home or self-care (01) ==
LOC: ER 20:33
PROC: 30233N1 Transfusion of Nonautologous Red Blood Cells into Peripheral Vein, Percutaneous Approach (ICD-10-PCS; principal; 2024-11-27)
DX: D50.0 Iron deficiency anemia secondary to blood loss (chronic) (principal); N39.0 Urinary tract infection, site not specified
CPT/HCPCS: 96361; 93005; 87088; 85025; 81001; 87086; 80048; 36415; 86900; 83735; 86850; 85610; 85044; 86901; 80076; 86920 ×2; 84484; 82728; 82607; 83540; 83880; 84466; 74177; 71045; 96375; 96374; 99284; 36430; Q9967; J2470; P9016 ×2; J7050; J7040; J0696